=== PATIENT | female | born 1940 | race Caucasian/White ===

== ENCOUNTER 2016-08-05 17:48 | Inpatient (IN) | payer OTHER ==
[~2016-08-05] VITALS: Ht 157.5 cm; Wt 98.4 kg
[~2016-08-05 17:48] MED LIST: ASPIRIN EC81 M1 PO; BACTRIM DS TAB1 EACH PO; BUFFERIN LOW DO81 MG PO; CALCIUM 600600 M1 PO; DOCUSATE SODIU100 MG PO; FLAX SEED OIL1000 MG PO; GLUCOSAMINE500 M1 PO; GREEN TEA150 MG PO; KEFLEX500 M1 PO; LASIX40 MG PO; LEVOTHYROXINE PO; LEVOTHYROXINE0.05 MG PO; LEVOXYL75 MCG PO; MULTIVITAMIN1 TAB PO; OXACILLIN2 G1 IV; PERCOCET 325 MG1 TA2 PO; PRINIVIL 5MG5 MG PO; SIMVASTATIN20 MG PO; VAYAROL 232.5 M1 CAP PO; VITAMIN D PO; VITAMIN D400 I1 PO; ZOCOR10 M1 PO
[2016-08-05 18:37] LABS: ABSOLUTE BASOPHIL COUNT 0.1 /CUMM (0.0-0.2); ABSOLUTE EOSINOPHIL COUNT 0.4 /CUMM (0.0-0.7); ABSOLUTE GRANULOCYTE CT 9.5 /CUMM (1.4-6.5); ABSOLUTE LYMPH COUNT 1.3 /CUMM (1.2-3.4); ABSOLUTE MONOCYTE COUNT 1.6 /CUMM (0.10-0.60); BASOPHIL % 0.6 % (0.0-2.0); EOSINOPHIL % 3.2 % (0-5); GRANULOCYTE % 73.7 % (42.2-75.2); HEMATOCRIT 34.3 % (37-47); MEAN CORPUSCULAR HGB 28.3 PG (27.0-31.0); MEAN CORPUSCULAR HGB CONC 32.7 G/DL (33.0-37.0); MEAN CORPUSCULAR VOLUME 86.6 FL (81.0-99.0); MEAN PLATELET VOLUME 7.4 FL (7.4-10.4); PLATELET COUNT 606 /CUMM (130-400); RED BLOOD CELL CT 3.96 /CUMM (4.20-5.40); WHITE BLOOD CELL COUNT 12.9 /CUMM (4.8-10.8)
--- NOTE | 2016-08-05 18:52 | ED DYSPNEA/ASTHMA COMPLAINT ---
History of Present Illness General Chief Complaint: Dyspnea (COPD, CHF, Other) Stated Complaint: SENT OVER BY PCP SOB Source: patient Exam Limitations: no limitations Allergies Coded Allergies: lansoprazole (From Prevacid) (UNKNOWN 11/06/15) ranitidine (From Zantac) (UNKNOWN 11/06/15) sucralose (From Splenda (sucralose)) (UNKNOWN 11/06/15) Reconcile Medications Aspirin (Ecotrin*) 81 MG TABLET.DR 1 TAB PO DAILY CAD (Reported) Ciprofloxacin HCl (Cipro) 500 MG TABLET 1 TAB PO BID Skin infection (Reported ) Furosemide (Lasix) 40 MG TABLET 1 TAB PO DAILY FLUID RETENTION (Reported) Levothyroxine Sodium (Levoxyl) 75 MCG TABLET 1 TAB PO DAILY THYROID (Reported ) Metronidazole 500 MG TABLET 1 TAB PO BID Skin infection (Reported) Simvastatin (Zocor*) 10 MG TABLET 1 TAB PO QPM CHOLESTEROL (Reported) Triage Note: PT HERE WITH C/O SOB 02 SAT 92% ON RA IN TRIAGE. PT THINKS SHE MAY BE HAVING A REACTION FROM VANCOMYCIN. Triage Nurses Notes Reviewed? 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 Skinner, for increased shortness of breath. The patient reported that she was seen here in the emergency department on 06/26/2016 and was transferred to [place] for another sternal debridement. She reported that she thinks she was discharged from skilled nursing on 07/06/2016. She currently has a PICC line in and receive vancomycin. The patient reported that she does not know exactly when she started to feel shortness of breath, but reported that it has been worsening. She is also unable to tell me when the shortness of breath got worse. She reported that she feels short of breath with exertion. She reported , "I feel fine when I'm not moving." The patient reported that she was on Lasix , but was taken off of Lasix due to low potassium. She reported that she resumed the Lasix, but her ankles are still swollen. The patient is able to lay flat at night without any difficulty breathing. She denied any fevers, chills, visual changes, jaw pain, arm pain, numbness or tingling in her extremities, chest pain, abdominal pain, nausea, vomiting, or any other associated symptoms. (ELAYNE HAIR PA-C) Vital Signs & Intake/Output Vital Signs & Intake/Output Vital Signs Date Time Temp Pulse Resp B/P Pulse O2 O2 Flow FiO2 Ox Delivery Rate 08/06 1999 Nasal 2.0L Cannula 08/06 1629 97.8 84 20 100/66 96 Nasal 2.0L Cannula 08/06 1600 95 Nasal 2.0L Cannula 08/06 1323 98.5 77 18 136/60 95 Nasal 2.0L Cannula 08/06 1102 98.4 75 20 124/57 95 Nasal 2.0L Cannula 08/06 1101 98.4 75 20 124/57 95 Nasal 2.0L Cannula 08/06 0800 98 Nasal 2.0L Cannula 08/06 0712 98.9 79 19 118/81 94 08/06 0700 98.9 79 20 118/81 94 Nasal 2.0L Cannula 08/06 0658 94 Nasal 2.0L Cannula 08/06 0117 100.2 68 18 127/79 94 Nasal 2.0L Cannula ED Intake and Output 08/06 0000 08/05 1200 Intake Total 150 Output Total Balance 150 Intake, Oral 150 Patient 233 lb Weight Past History Travel History Traveled to [place] past 21 day No Medical History Any Pertinent Medical History? see below for history Cardiovascular: hypertension, hyperlipidemia, diabetes Endocrine: diabetes, hypothyroidism History of MRSA: No History of VRE: No History of CDIFF: No Surgical History Surgical History: CABG, sternal debridements x8 Psychosocial History Who do you live with Spouse Services at Home None What is your primary language Ethiopian Tobacco Use: Quit >30 days ago ETOH Use: denies use Illicit Drug Use: denies illicit drug use Family History Hx Contributory? No (ELAYNE HAIR PA-C) Review of Systems Review of Systems Constitutional: Reports: no symptoms. EENTM: Reports: no symptoms. Respiratory: Reports: see HPI. Cardiovascular: Reports: see HPI. GI: Reports: no symptoms. Genitourinary: Reports: no symptoms. Musculoskeletal: Reports: no symptoms. Skin: Reports: no symptoms. Neurological/Psychological: Reports: no symptoms. All Other Systems: Reviewed and Negative (ELAYNE HAIR PA-C) Physical Exam Physical Exam Respiratory: no respiratory distress, quiet respiration, No rhonchi or wheezes. Rales in bilateral lung bases. No stridor. Comments: Well-developed well-nourished person in no acute distress HEENT: Normal EENT exam, head normocephalic, moist mucous membranes Pupils equally round and reactive to light. Neck: Supple, no lymphadenopathy Back: Normal inspection Cardiovascular: Regular rate and rhythms no murmur , rubs, or gallops. No JVD. No carotid bruits Abdomen: Soft, nontender, nondistended Extremity: 1+ pedal and lower extremity edema bilaterally, no calf tenderness to palpation, normal and equal pulses. Neuro: Alert oriented x3, cranial nerves II through XII grossly intact. Skin: No appreciable rash on exposed skin, skin is warm and dry. Psych: Mood and affect is normal Core Measures ACS in differential dx? Yes Severe Sepsis Present: No Septic Shock Present: No (LAXMI ELLIOTT,ELAYNE) Progress Differential Diagnosis: asthma, AMI, bronchitis, costochondritis, CHF, COPD, musculoskeletal pain, pericarditis, pulmonary embolism, pneumonia, pneumothorax, unstable angina Diagnostic Imaging: Viewed by Me: Radiology Read, CT Scan. Discussed w/RAD: Radiology Read, CT Scan. Radiology Impression: PATIENT: AMELIA PERAZA PRESENT AGE: 76 PATIENT ACCOUNT NO: [id number] : 42 LOCATION: [facility] ORDERING PHYSICIAN: ELAYNE HAIR PA-C SERVICE DATE: 08/05/16 EXAM TYPE: RAD - XRY-PORTABLE CHEST XRAY EXAMINATION: XR PORTABLE CHEST CLINICAL INFORMATION: Shortness of breath. Evaluate for pneumonia. COMPARISON: Chest CT 06/27/2016 and chest x-ray 02/23/2014 TECHNIQUE: Portable view of the chest was obtained. FINDINGS: Diffuse patchy opacity primarily involving the middle and right lower lobes most suggestive of pneumonia. The left hemithorax is relatively well aerated with mild basilar atelectasis. The cardiac silhouette is difficult to evaluate given adjacent consolidation, however, it appears enlarged, a stable finding. A left-sided PICC line is seen terminating at the junction of the left brachiocephalic vein and superior vena cava. Surgical clips project over the mediastinum and axilla. IMPRESSION: Diffuse patchy opacity primarily involving the middle and right lower lobes most suggestive of pneumonia. DICTATED BY: MISSAEL ANTHONY MD DATE/TIME DICTATED:08/05/161842 SCRIPT WRITER:NISHI DATE/TIME TRANSCRIBED:08/05/161842 CONFIDENTIAL, DO NOT COPY WITHOUT APPROPRIATE AUTHORIZATION. <Electronically signed in Other Vendor System> SIGNED BY: MISSAEL ANTHONY MD 08/05/161849, PATIENT: AMELIA PERAZA PRESENT AGE: 76 PATIENT ACCOUNT NO: [id number] : 42 LOCATION: [facility] ORDERING PHYSICIAN: ELAYNE HAIR PA-C SERVICE DATE: 08/05/16 EXAM TYPE: CAT - CTA CHEST-PULMONARY EMBOLISM EXAMINATION: CT ANGIOGRAM OF THE CHEST WITH AND WITHOUT CONTRAST (CT PULMONARY ANGIOGRAM FOR PE) CLINICAL INFORMATION: Shortness of breath. COMPARISON: Portable chest 08/05/2016. CT of chest 06/27/2016. TECHNIQUE: Prior to contrast administration, noncontrast localization images were obtained. Subsequently, multidetector volumetric imaging was performed from the thoracic inlet to below the diaphragms following the administration of 95 mL Optiray 350 intravenous contrast. No contrast reaction reported. Sagittal, coronal, and MIP oblique sagittal reformatted images were obtained on the CT workstation, uploaded to PACS, and reviewed. Total exam dose-length product 584.92 mGy-cm. FINDINGS: QUALITY OF STUDY/ CONTRAST BOLUS: Satisfactory. PULMONARY ARTERIES: No central or segmental pulmonary emboli. THORACIC AORTA: Atherosclerotic vascular wall calcifications of the aorta. No aneurysm. There is vascular calcification of coronary arteries. LUNG: Scattered groundglass airspace disease throughout the right lung involving all lobes. Left lung is clear. PLEURA: Small layering right pleural effusion. MEDIASTINUM: No bulky lymphadenopathy. No evidence of septal bowing or right heart strain. CHEST WALL/AXILLA: There is a drain at the midline just superficial to the manubrium and sternum that extends into the anterior along a longitudinal course. There is no abscess or fluid collection. No bone destruction. No axillary mass or lymphadenopathy. OSSEOUS STRUCTURES: There is a small gap of the sternum at the junction of the body and manubrium centrally measuring 0.7 cm. The margins are corticated. No bone destruction. UPPER ABDOMEN : Atherosclerotic vascular wall calcifications of the aorta, celiac axis and splenic artery. Visualized portions of spleen, liver and adrenal glands are normal. IMPRESSION: 1. No evidence of pulmonary embolism. 2. Diffuse scattered groundglass opacities throughout the right lung may be infectious in etiology. Left lung is clear. VTE: negative DICTATED BY: KEDAR RUIZ MD DATE/TIME DICTATED:08/05/162017 SCRIPT WRITER:NISHI DATE/TIME TRANSCRIBED:2017 CONFIDENTIAL, DO NOT COPY WITHOUT APPROPRIATE AUTHORIZATION. < Electronically signed in Other Vendor System> SIGNED BY: KEDAR RUIZ MD 2041 Initial ED EKG: nonspecific ST T wave chg, multiple atrial premature complexes, flipped T waves and T wave flattening, changed from prior ekg, 85 bpm Comments: 08/05/2016 7:03:18 PM: I discussed this patient with Dr. Skinner. He reported that he saw an EKG from this patient earlier today which showed changes from her prior EKG. Requesting a CT angiogram of the chest to rule out PE. 08/05/2016 8:47:18 PM: This patient's Physician called emergency department. He remained. Dr. Skinner did not receive any information from [place] after she was admitted. They note that she did have an infectious disease consult. They did not now if she received any anticoagulation during her stay. They are worried for PE. No known history of CHF. This patient has had multiple sternal debridements and has been increasingly short of breath. He reported that she is typically very sedentary since the surgeries have been taken place. He has been working very closely with Dr. Skinner take care of this patient. 08/05/2016 9:33:24 PM: Discussed this patient with Dr. Skinner. He would like to take this patient onto his service. Requested that housestaff consult with pulmonology after they evaluate this patient. (LAXMI ELLIOTT,ELAYNE) Plan of Care: Orders Procedure Date/time Status ECHOCARDIOGRAM 08/07 899 Active Lab Add-on Test 08/07 599 Active VANCOMYCIN TROUGH 08/07 599 Active CBC WITHOUT DIFFERENTIAL 08/07 599 Active BASIC ELECTROLYTES PLUS BUN&CR 08/07 599 Active Heart Healthy Diet 08/06 B Active Nursing Misc 08/06 2038 Active Transfer Disposition 08/06 1914 Active TROPONIN LEVEL 08/06 1339 Complete EKG 08/06 1339 Active MAGNESIUM 08/06 09 Complete Change service to 08/06 0825 Active Change service to 08/06 0732 Active RAPID VIRAL INFLUENZA A 08/06 0700 Complete TROPONIN LEVEL 08/06 07 Complete WESTERGREN SED RATE 08/06 0700 Complete CBC WITHOUT DIFFERENTIAL 08/06 07 Complete BASIC ELECTROLYTES PLUS BUN&CR 08/06 07 Complete EKG 08/06 0700 Active Lab Add-on Test 08/06 0235 Active Teach/Educate 08/06 015 Active Nutritional Intake, Monitor 08/06 0152 Active Isolation 08/06 015 Complete Patient Care Conference 08/06 0152 Active Pathway - chart 08/06 0122 Active Pathway - chart 08/06 0121 Active House Staff 08/06 0121 Active Patient Data 08/06 0121 Active Code Status 08/06 0121 Active TROPONIN LEVEL 08/06 0100 Complete EKG 08/06 0100 Active CULTURE,URINE 08/06 0023 Active STREP PNEUMO URINARY ANTIGEN 08/06 0023 Active LEGIONELLA URINARY ANTIGEN 08/06 0023 Active LOWER RESPIRATORY CULTURE 08/06 0023 Active URINALYSIS 08/06 0023 Complete OXYGEN SETUP (GEN) 08/06 UNK Complete Weight 08/06 UNK Active VTE Mechanical Prophylaxis 08/06 UNK Active Telemetry/Broiler Chef Or Cook 08/06 UNK Complete Intake & Output 08/06 UNK Active PHOSPHORUS 08/05 1823 Complete Current Medications Sig/Louis Start time Last Medication Dose Stop Time Status Admin Furosemide 20 MG DAILY 08/07 1000 AC (Lasix) Melatonin 3 MG ONCE ONE 08/06 2044 CAN (Melatonin) 08/06 2045 Ibuprofen 600 MG Q6P PRN 08/06 013 AC (Motrin) Nystatin 1 DASH BID PRN 08/06 013 AC (Mycostatin) Oxycodone/ 2 TAB Q6P PRN 08/06 013 AC Acetaminophen (Percocet) Laboratory Tests 08/06/16 1650: Troponin I 0.02 08/06/16 0900: Anion Gap 13, Estimated GFR > 60, BUN/Creatinine Ratio 16.3, Magnesium 1.6, Troponin I 0.02 08/06/16 0700: CBC w Diff NO MAN DIFF REQ, RBC 3.62 L, MCV 86.8, MCH 28.5, RDW 17.3 H, MPV 7.5, Gran % 62.8, Lymphocytes % 13.3 L, Monocytes % 17.9 H, Eosinophils % 4.9, Basophils % 1.1, Absolute Granulocytes 5.9, Absolute Lymphocytes 1.3, Absolute Monocytes 1.7 H, Absolute Eosinophils 0.5, Absolute Basophils 0.1, PUBS MCHC 32.8 L, ESR Westergren 37 H 08/06/16199: Urinalysis LIGHT H, Urine Color YEL, Urine Clarity CLEAR, Urine pH 6.5, Ur Specific [place] 1.010, Urine Protein TRACE H, Urine Ketones NEG, Urine Nitrite NEG, Urine Bilirubin NEG, Urine Urobilinogen 0.2, Ur Leukocyte Esterase NEG, Ur Microscopic SEDIMENT EXAMINED, Urine WBC 1-3 H, Ur Epithelial Cells FEW, Urine Mucus RARE, Urine Hemoglobin NEG, Urine Glucose NEG 08/06/16 0135: Troponin I < 0.01 08/06/16 0135: Lactic Acid 1.4 Microbiology 08/06 07 BLOOD: Blood Culture - RECD 08/06 199 URINE ROUT: Legionella Antigen - RES 08/06 199 URINE ROUT: Streptococcus pneumoniae Antigen (M - RES 08/06 199 URINE ROUT: Urine Culture - RES 08/06 22 LOWER RESP: Respiratory Culture - COLB 08/06 22 LOWER RESP: Gram Stain - COLB Departure Departure Disposition: STILL A PATIENT Condition: Stable Clinical Impression Primary Impression: Pneumonia Qualifiers: Pneumonia type: due to unspecified organism Laterality: unspecified laterality Lung location: unspecified part of lung Qualified Code: J18.9 - Pneumonia, unspecified organism Secondary Impressions: Respiratory alkalosis Referrals: TOMMY ALARCON,CARLA Griggs (PCP/Family) Departure Forms: Customer Survey General Discharge Information Admission Note Spoke With: Jairo SKINNER MD Documentation of Exam: Documentation of any treatments & extenuating circumstances including Concerns Regarding Discharge (functional status, medication knowledge or non-compliance, living conditions, etc.) that warrant an admission rather than observation: [ This patient is a 76-year-old female with a past medical history including diabetes, hypertension, and CABG status post multiple sternal debridements for postoperative infection who presents to the emergency department today for evaluation of increasing shortness of breath. BNP elevated. EKG changes compared to prior. Pneumonia based on CT of the chest and chest x-ray. White blood cell count 12.9. This patient will need to be admitted to telemetry floor. Cardiology consultation, echocardiogram, follow-up blood cultures, IV antibiotics, gentle hydration, IV Lasix, trend labs, and close monitoring. Given this patient's significant medical history, premature discharge could prove medically harmful.] (LAXMI ELLIOTT,ELAYNE) PA/EQUAL OPPORTUNITY ASSISTANT Co-Sign Statement Statement: ED Attending supervision documentation- [X] I saw and evaluated the patient. I have also reviewed all the pertinent lab results and diagnostic results. I agree with the findings and the plan of care as documented in the PA's/EQUAL OPPORTUNITY ASSISTANT's documentation. [X] I have reviewed the ED Record and agree with the PA's/EQUAL OPPORTUNITY ASSISTANT's documentation. [] Additions or exceptions (if any) to the PAs/EQUAL OPPORTUNITY ASSISTANT's note and plan are summarized below: [] (AYDEN RILEY,PATTIE Grider) Critical Care Note Critical Care Note Critical Care Time: non-applicable (LAXMI ELLIOTT,ELAYNE)
--- NOTE | 2016-08-05 20:42 | CT SCAN REPORT ---
EXAMINATION: CT ANGIOGRAM OF THE CHEST WITH AND WITHOUT CONTRAST (CT PULMONARY ANGIOGRAM FOR PE) CLINICAL INFORMATION: Shortness of breath. COMPARISON: Portable chest 08/05/2016. CT of chest 06/27/2016. TECHNIQUE: Prior to contrast administration, noncontrast localization images were obtained. Subsequently, multidetector volumetric imaging was performed from the thoracic inlet to below the diaphragms following the administration of 95 mL Optiray 350 intravenous contrast. No contrast reaction reported. Sagittal, coronal, and MIP oblique sagittal reformatted images were obtained on the CT workstation, uploaded to PACS, and reviewed. Total exam dose-length product 584.92 mGy-cm. FINDINGS: QUALITY OF STUDY/CONTRAST BOLUS: Satisfactory. PULMONARY ARTERIES: No central or segmental pulmonary emboli. THORACIC AORTA: Atherosclerotic vascular wall calcifications of the aorta. No aneurysm. There is vascular calcification of coronary arteries. LUNG: Scattered groundglass airspace disease throughout the right lung involving all lobes. Left lung is clear. PLEURA: Small layering right pleural effusion. MEDIASTINUM: No bulky lymphadenopathy. No evidence of septal bowing or right heart strain. CHEST WALL/AXILLA: There is a drain at the midline just superficial to the manubrium and sternum that extends into the anterior along a longitudinal course. There is no abscess or fluid collection. No bone destruction. No axillary mass or lymphadenopathy. OSSEOUS STRUCTURES: There is a small gap of the sternum at the junction of the body and manubrium centrally measuring 0.7 cm. The margins are corticated. No bone destruction. UPPER ABDOMEN: Atherosclerotic vascular wall calcifications of the aorta, celiac axis and splenic artery. Visualized portions of spleen, liver and adrenal glands are normal. IMPRESSION: 1. No evidence of pulmonary embolism. 2. Diffuse scattered groundglass opacities throughout the right lung may be infectious in etiology. Left lung is clear. VTE: negative
--- NOTE | 2016-08-06 00:12 | History & Physical ---
DIANNEPILOBRYON 08/06/16 0011: General Information and HPI MD Statement: I have seen and personally examined AMELIA WILHELM and documented this H&P. The patient is a 76 year old F who presented with a patient stated chief complaint of [progressive shortness of breath]. Source of Information: patient, family, old records Exam Limitations: no limitations History of Present Illness: Mrs Wilhelm is a 76-year-old lady with a PMH of HTN, HLD, hypothyroidism, CAD s/p CABG (07/2010), complicated with multiple sternal infections/osteomyelitis requiring multiple debridements and POONAM drain most recently 06/12/[address] Downey and again on 06/27/16 at [facility]. From an infectious disease standpoint she is currently on IV vancomycin via LUE PICC line inserted 07/07/2016, metronidazole 500 mg PO BID, Cipro 500 mg PO BID for planned duration of therapy through 08/14/2015 and being followed by Dr. Gupta ( ID at [facility]). She reports 3-4 week duration of mild exertional dyspnea that has progressed over the past 1 week accompanied by lower extremity swelling. She followed up with her PCP and Dr. Skinner today and was referred to [facility] for further workup. Since starting on the IV antibiotics she reports decrease in appetite, occasional flashing in her arms that appears to be gradually improving. She denies any fevers, chills, new chest pain, palpitations, dizziness, nausea, abdominal pain, dysuria/urinary urgency/frequency or diarrhea. At discharge from [facility] she had 4 POONAM drains, 3 of which have been removed. A single drain remains in place at this time with approx 20-30cc serousaguinous daily drainage, no dehiscence of the wound with dry dressing changes QOD. Allergies/Medications Allergies: Coded Allergies: lansoprazole (From Prevacid) (UNKNOWN 11/06/15) ranitidine (From Zantac) (UNKNOWN 11/06/15) sucralose (From Splenda (sucralose)) (UNKNOWN 11/06/15) Home Med list Aspirin (Ecotrin*) 81 MG TABLET. 1 TAB PO DAILY CAD (Reported) Ciprofloxacin HCl (Cipro) 500 MG TABLET 1 TAB PO BID Skin infection (Reported ) Furosemide (Lasix) 40 MG TABLET 1 TAB PO DAILY FLUID RETENTION (Reported) Levothyroxine Sodium (Levoxyl) 75 MCG TABLET 1 TAB PO DAILY THYROID (Reported ) Metronidazole 500 MG TABLET 1 TAB PO BID Skin infection (Reported) Simvastatin (Zocor*) 10 MG TABLET 1 TAB PO QPM CHOLESTEROL (Reported) Past History Travel History Traveled to [place] past 21 day No Medical History Cardiovascular: hypertension, hyperlipidemia, diabetes Endocrine: diabetes, hypothyroidism History of MRSA: No History of VRE: No History of CDIFF: No Surgical History Surgical History: CABG, sternal debridements x8 Past Family/Social History Psychosocial History Services at Home: None ETOH Use: denies use Illicit Drug Use: denies illicit drug use Review of Systems Review of Systems Constitutional: Reports: see HPI. EENTM: Reports: no symptoms. Cardiovascular: Reports: see HPI. Respiratory: Reports: see HPI. GI: Reports: no symptoms. Genitourinary: Reports: no symptoms. Musculoskeletal: Reports: no symptoms. Skin: Reports: see HPI. Exam & Diagnostic Data Last 24 Hrs of Vital Signs/I&O Vital Signs Date Time Temp Pulse Resp B/P Pulse O2 O2 Flow FiO2 Ox Delivery Rate 08/06 0117 100.2 68 18 127/79 94 Nasal 2.0L Cannula 08/05 2305 111 18 123/63 92 08/05 2058 Room Air 08/05 2056 65 18 97/46 96 08/05 2045 89 18 145/73 91 08/05 1848 122/76 08/05 1814 148/88 08/05 1759 96.9 92 18 92 Room Air Intake & Output 08/06 0800 08/06 0000 08/05 1600 Intake Total 150 Output Total Balance 150 Intake, Oral 150 Patient 233 lb Weight Physical Exam General Appearance Alert, Oriented X3, No Acute Distress Skin The mediastinal wound is well healing with no evidence of dehiscence. There is a single POONAM drain in the lower mediastinal region with serousanguinous drainage. Intertrigo in the skin folds below the breasts with erythema HEENT PERRLA, EOMI, Mucous Membr. moist/pink Cardiovascular Regular Rate, Normal S1, Normal S2 Lungs Normal Air Movement, Dimnished breath sounds in the basilar regions and strifor in the R lung field Abdomen Normal Bowel Sounds, Soft, No Tenderness Neurological Normal Speech, Normal Tone Extremities Normal Pulses, 2+ pitting edema BL LE Last 24 Hrs of Labs/Ayaz: Laboratory Tests 08/06/16199: Urinalysis LIGHT H, Urine Color YEL, Urine Clarity CLEAR, Urine pH 6.5, Ur Specific [place] 1.010, Urine Protein TRACE H, Urine Ketones NEG, Urine Nitrite NEG, Urine Bilirubin NEG, Urine Urobilinogen 0.2, Ur Leukocyte Esterase NEG, Ur Microscopic SEDIMENT EXAMINED, Urine WBC 1-3 H, Ur Epithelial Cells FEW, Urine Mucus RARE, Urine Hemoglobin NEG, Urine Glucose NEG 08/06/16 0135: Troponin I < 0.01 08/06/16 013: Lactic Acid 1.4 08/05/162001: Lactic Acid 2.1 08/05/16 1850: pH 7.50 H, pCO2 29 L, pO2 73 L, HCO3 21, ABG O2 Sat (Measured) 92.0 L, P-50 (Temp Corrected) Y, Carboxyhemoglobin 0.8 L, O2 Concentration % RA, Temperature 100.3 H, O2 Delivery Method RA, Phlebotomy Draw Site RIGHT RADIAL 08/05/16 1823: Anion Gap 14, Estimated GFR > 60, BUN/Creatinine Ratio 16.7, Glucose 145 H, Calcium 8.6, Magnesium 1.4 L, Total Bilirubin 0.5, AST 23, ALT 22, Alkaline Phosphatase 92, Troponin I 0.02, Zsw-Z-Httquilmdsj Pept 8430 H, Total Protein 5.8 L, Albumin 3.1 L, Globulin 2.7, Albumin/Globulin Ratio 1.1, CBC w Diff NO MAN DIFF REQ, RBC 3.96 L, MCV 86.6, MCH 28.3, RDW 17.0 H, MPV 7.4, Gran % 73.7 , Lymphocytes % 10.3 L, Monocytes % 12.2 H, Eosinophils % 3.2, Basophils % 0.6 , Absolute Granulocytes 9.5 H, Absolute Lymphocytes 1.3, Absolute Monocytes 1.6 H, Absolute Eosinophils 0.4, Absolute Basophils 0.1, PUBS MCHC 32.7 L, Vancomycin Trough 23.0 H Microbiology 08/06 199 URINE ROUT: Legionella Antigen - RECD 08/06 199 URINE ROUT: Streptococcus pneumoniae Antigen (M - RECD 08/06 199 URINE ROUT: Urine Culture - RECD 08/06 22 LOWER RESP: Respiratory Culture - ORD 08/06 22 LOWER RESP: Gram Stain - ORD 08/05 2001 BLOOD: Blood Culture - RECD 08/05 1912 BLOOD: Blood Culture - COLB Diagnostic Data EKG Results Sinus rhythm, HR 85. Multiple HR premature complexes, repolarization abnormalities suggestive of ischemia. QTC 471 CXR Results Diffuse patchy opacity primarily involving the middle and right lower lobes most suggestive of pneumonia. Other Results Chest CTA: 1. No evidence of pulmonary embolism. 2. Diffuse scattered groundglass opacities throughout the right lung may be infectious in etiology. Left lung is clear. VTE: negative Assessment/Plan Assessment: 76-year-old lady with a PMH of HTN, HLD, hypothyroidism, CAD s/p CABG (07/2010), complicated with multiple sternal infections/osteomyelitis requiring multiple debridements and POONAM drain most recently 06/12/[address] Downey and again on 06/27/16 at [facility] who presents with reports of 3-4 week duration of progressive exertional dyspnea and lower extremity swelling. From an infectious disease standpoint she is currently on IV vancomycin via LUE PICC line inserted 07/07/2016, metronidazole 500 mg PO BID, Cipro 500 mg PO BID for planned duration of therapy through 08/14/2015 and being followed by Dr. Gupta (ID at [facility]). At discharge from [facility] she had 4 POONAM drains, 3 of which have been removed. A single drain remains in place at this time with approx 20-30cc serousaguinous daily drainage, no dehiscence of the wound with dry dressing changes QOD. VS on admission: BP 148/88, HR 92, RR 18, SPO2 92% on RA, T 96.9 Pertinent labs: WBC 12.9, H&H 11.2/34.3, platelet count 606K, potassium 3.3, BUN /CR 50/0.9 Magnesium: 1.4 ProBNP: 8430 AB.50/29/73/92 on RA Problem list: 1. Healthcare versus community-acquired pneumonia 2. Exertional dyspnea: rule out ACS 3. Recurrent mediastinal infections s/p debridement 4. Hypothyroidism 5. Hyperlipidemia 6. Thrombocytosis: Likely reactive secondary to infectious process 7. Hypokalemia 8. Hypomagnesemia Plan: * Admit to telemetry for continuous cardiac monitoring * In the setting of extensive cardiac history, prior diagnosis of prediabetes will obtain serial EKG/troponin to rule out ACS. 0100 hrs., 0700 hrs. echocardiogram in the a.m. Dr Skinner is notified of admission and will follow up in the morning * Patient is currently on vancomycin, metronidazole and ciprofloxacin new findings on CXR/chest CT. We'll continue her current antibiotic coverage, obtain pulmonology consult in the morning for possible antibiotic adjustments. Consider levofloxacin/moxifloxacin for better pulmonary coverage for Pseudomonas instead of Cipro. Follow up blood, urine cultures, rapid flu * Repleting potassium and magnesium and follow-up in the a.m. * Nystatin powder for intertrigo * Continue Synthroid 0.075 mg * Trazodone PRN for sleep * Heart healthy diet * Full code AM TEAM: * Confirm daily vancomycin dose from [facility]. * Pulm consult As Ranked By This Provider Problem List: 1. Pneumonia Qualifiers Pneumonia type: due to unspecified organism Laterality: unspecified laterality Lung location: unspecified part of lung Qualified Code: J18.9 - Pneumonia, unspecified organism 2. Bilateral lower extremity edema 3. Hypertension 4. Hypothyroidism 5. Obesity 6. prison (current) use of antibiotics Core Measures/Miscellaneous Acute Coronary Syndrome ACS Diagnosis: No Cerebrovascular Accident CVA/TIA Diagnosis: No Congestive Heart Failure CHF Diagnosis: No Venous Thromboembolism VTE Risk Factors: Acute medical illness, Age > 40 VTE Prophylaxis Ordered Inpt: Pharm- Heparin No Mech VTE prophylaxis d/t: No contraindications No VTE Pharm Prophylaxis d/t: No contraindications VTE Diagnosis: No VTE Type: NONE VTE Confirmed by (Test): NONE Severe Sepsis Severe Sepsis Present: No Septic Shock Septic Shock Present: No Miscellaneous Documentation Attending Case Discussed With: Jairo SKINNER MD Primary Care Physician: CARLA WARD Patient sees these Specialists DR Gupta (ID @ [facility]) Level of Patient Care: Telemetry Resident Review Statement Resident Statement: examined this patient, discussed with transportation logistics internship, agreed with transportation logistics internship, discussed with family, reviewed EMR data (avail), discussed with nursing , reviewed images TASIA SKINNER MD 08/06/16 0834: Attending Review Statement Attending Statement Attending Statement: examined this patient, discuss w/resident/PA/NURSE CONSULTANT, agreed w/resident/PA/NURSE CONSULTANT, discussed with family, reviewed EMR data (avail), discussed with nursing, discussed with case mgmt, reviewed images, amended to note Attending Assessment/Plan: The patient is a 76-year-old female well-known to me. The patient is now admitted to the hospital with a long history of multiple sternal wound infections, status post recent discharge from [facility]. She presented to the office today with worsening shortness of breath over the last several weeks. She denied any other systemic symptoms. The patient's chest x- ray shows evidence of a right-sided infiltrate suggestive of possible pneumonia. Her CTA shows no evidence of pulmonary bolus. It does, however, confirmed the presence of right-sided pulmonary disease. Recommendations: -Admit the patient to [address] [place] [address]. -Serial troponins -Pulmonary consult -Continue antibiotics for now -Echocardiogram to rule out change in left ventricular systolic function -Further plans after pulmonary input.
[2016-08-06] MEDS ORDERED: METRONIDAZOLE500 M1 PO (01:17)
[2016-08-06] MEDS ORDERED: CIPRO500 M1 PO (01:17)
[2016-08-06 07:00] VITALS: BP 118/81
[2016-08-06 07:42] LABS: ABSOLUTE BASOPHIL COUNT 0.1 /CUMM (0.0-0.2); ABSOLUTE EOSINOPHIL COUNT 0.5 /CUMM (0.0-0.7); ABSOLUTE GRANULOCYTE CT 5.9 /CUMM (1.4-6.5); ABSOLUTE LYMPH COUNT 1.3 /CUMM (1.2-3.4); ABSOLUTE MONOCYTE COUNT 1.7 /CUMM (0.10-0.60); BASOPHIL % 1.1 % (0.0-2.0); EOSINOPHIL % 4.9 % (0-5); GRANULOCYTE % 62.8 % (42.2-75.2); HEMATOCRIT 31.4 % (37-47); MEAN CORPUSCULAR HGB 28.5 PG (27.0-31.0); MEAN CORPUSCULAR HGB CONC 32.8 G/DL (33.0-37.0); MEAN CORPUSCULAR VOLUME 86.8 FL (81.0-99.0); MEAN PLATELET VOLUME 7.5 FL (7.4-10.4); PLATELET COUNT 541 /CUMM (130-400); RBC DISTRIBUTION WIDTH 17.3 % (11.5-14.5); RED BLOOD CELL CT 3.62 /CUMM (4.20-5.40); WHITE BLOOD CELL COUNT 9.4 /CUMM (4.8-10.8)
--- NOTE | 2016-08-06 07:47 | PN- Housestaff ---
Subjective Follow-up For: -worsening shortness of breath Complaints: no complaints Subjective: I have seen and examined the patient today morning, she was sitting on the bed, comfortable, on 2 L of nasal cannula, saturating about 92%, she did not have any new complaint. POONAM drain was in place, PICC line in the left arm, picc line site clear, no erythema. She has bilateral lower extremity edema Review of Systems Constitutional: Reports: see HPI. EENTM: Denies: blurred vision, double vision, visual changes, eye pain. Cardiovascular: Reports: orthopena, peripheral edema. Denies: chest pain, edema, palpitations. Respiratory: Reports: short of breath. Denies: cough, hemoptysis, orthopnea, sputum production, stridor, wheezing. Gastrointestinal: Denies: abdominal pain, bloating, constipation, diarrhea. Genitourinary: Reports: no symptoms. Musculoskeletal: Reports: no symptoms. Skin: Denies: cysts, change in skin color, change in hair/nails, dryness, erythema. Neurological/Psychological: Denies: anxiety, ataxia, cognitive dysfunction, confusion. Hematologic/Endocrine: Reports: no symptoms. Objective Last 24 Hrs of Vital Signs/I&O Vital Signs Date Time Temp Pulse Resp B/P Pulse O2 O2 Flow FiO2 Ox Delivery Rate 08/06 0712 98.9 79 19 118/81 94 08/06 0658 94 Nasal 2.0L Cannula 08/06 0117 100.2 68 18 127/79 94 Nasal 2.0L Cannula 08/05 2305 111 18 123/63 92 08/05 2058 Room Air 08/05 2056 65 18 97/46 96 08/05 2044 89 18 145/73 91 08/05 1848 122/76 08/05 1814 148/88 08/05 1759 96.9 92 18 92 Room Air Intake & Output 08/06 0800 08/06 0000 08/05 1600 Intake Total 150 Output Total Balance 150 Intake, Oral 150 Patient 105.687 kg 105.687 kg Weight Physical Exam General Appearance: Alert, Oriented X3, Cooperative, No Acute Distress Skin: No Rashes, No Breakdown, b/l lower extremtiy edema HEENT: Atraumatic, PERRLA, EOMI Neck: Supple, No JVD Lymphatic: no lad Cardiovascular: Normal S1, Normal S2, No Murmurs Lungs: decreased bs on right side Abdomen: sternal wound POONAM drain - 1 present, Neurological: Strength at 5/5 X4 Ext, Normal Tone, Sensation Intact Extremities: b/l lower extremtiy edema 2 to 3+, left upper extremity PICC line present. Vascular: Normal Pulses Current Medications: Current Medications Sig/Louis Start time Last Medication Dose Route Stop Time Status Admin Aspirin Buffered 81 MG DAILY 08/06 1000 AC PO Atorvastatin Calcium 5 MG 1700 08/06 1700 AC PO Ciprofloxacin 0 .STK-MED ONE 08/06 132 DC PO Ciprofloxacin 500 MG BID 08/06 0118 AC 08/06 PO 08/10 011 0135 Enoxaparin Sodium 40 MG DAILY 08/06 1000 AC SC Furosemide 40 MG DAILY 08/06 1000 AC PO Ibuprofen 600 MG Q6P PRN 08/06 0130 AC PO Levothyroxine Sodium 0.075 MG DAILY AC 08/06 0700 AC 08/06 PO 0710 Magnesium Oxide 400 MG ONCE ONE 08/06 024 DC 08/06 PO 08/06 024 0442 Metronidazole 0 .STK-MED ONE 08/06 132 DC PO Metronidazole 500 MG BID 08/06 011 AC 08/06 PO 0135 Nystatin 1 DASH BID PRN 08/06 0130 AC TOP Oxycodone/ 0 .STK-MED ONE 08/06 132 DC Acetaminophen PO Oxycodone/ 1 TAB Q6P PRN 08/06 0130 AC 08/06 Acetaminophen PO 0135 Oxycodone/ 2 TAB Q6P PRN 08/06 0130 AC Acetaminophen PO Potassium Chloride 0 .STK-MED ONE 08/06 0422 DC PO Potassium Chloride 40 MEQ ONCE ONE 08/06 0245 DC 08/06 PO 08/06 0246 0442 Ramelteon 8 MG ONCE ONE 08/06 0430 DC 08/06 PO 08/06 043 0442 Trazodone HCl 0 .STK-MED ONE 08/06 011 DC PO Trazodone HCl 25 MG ONCE ONE 08/06 010 DC 08/06 PO 08/06 010 0127 Last 24 Hrs of Lab/Ayaz Results Last 24 Hrs of Labs/Mics: Laboratory Tests 08/06/16 0700: CBC w Diff Pending, WBC Pending, RBC Pending, Hgb Pending, Hct Pending, MCV Pending, MCH Pending, RDW Pending, Plt Count Pending, MPV Pending, PUBS MCHC Pending, ESR Westergren Pending 08/06/16 020: Urinalysis LIGHT H, Urine Color YEL, Urine Clarity CLEAR, Urine pH 6.5, Ur Specific [place] 1.010, Urine Protein TRACE H, Urine Ketones NEG, Urine Nitrite NEG, Urine Bilirubin NEG, Urine Urobilinogen 0.2, Ur Leukocyte Esterase NEG, Ur Microscopic SEDIMENT EXAMINED, Urine WBC 1-3 H, Ur Epithelial Cells FEW, Urine Mucus RARE, Urine Hemoglobin NEG, Urine Glucose NEG 08/06/16 0135: Troponin I < 0.01 08/06/16134: Lactic Acid 1.4 08/05/162001: Lactic Acid 2.1 08/05/160: pH 7.50 H, pCO2 29 L, pO2 73 L, HCO3 21, ABG O2 Sat (Measured) 92.0 L, P-50 (Temp Corrected) Y, Carboxyhemoglobin 0.8 L, O2 Concentration % RA, Temperature 100.3 H, O2 Delivery Method RA, Phlebotomy Draw Site RIGHT RADIAL 08/05/16 1823: Anion Gap 14, Estimated GFR > 60, BUN/Creatinine Ratio 16.7, Glucose 145 H, Calcium 8.6, Phosphorus 3.0, Magnesium 1.4 L, Total Bilirubin 0.5, AST 23, ALT 22, Alkaline Phosphatase 92, Troponin I 0.02, Pyt-I-Iyamxjqjhfh Pept 8430 H, Total Protein 5.8 L, Albumin 3.1 L, Globulin 2.7, Albumin/Globulin Ratio 1.1, CBC w Diff NO MAN DIFF REQ, RBC 3.96 L, MCV 86.6, MCH 28.3, RDW 17.0 H, MPV 7.4, Gran % 73.7, Lymphocytes % 10.3 L, Monocytes % 12.2 H, Eosinophils % 3.2, Basophils % 0.6, Absolute Granulocytes 9.5 H, Absolute Lymphocytes 1.3, Absolute Monocytes 1.6 H, Absolute Eosinophils 0.4, Absolute Basophils 0.1, PUBS MCHC 32.7 L, Vancomycin Trough 23.0 H Microbiology 08/06 0700 BLOOD: Blood Culture - RECD 08/06 199 URINE ROUT: Legionella Antigen - RES 08/06 199 URINE ROUT: Streptococcus pneumoniae Antigen (M - RES 01/12 0200 URINE ROUT: Urine Culture - RES 08/06 0023 LOWER RESP: Respiratory Culture - COLB 08/06 22 LOWER RESP: Gram Stain - COLB 08/05 2001 BLOOD: Blood Culture - WKST Lines/Diet/Fluids Restraints: none Assessment/Plan Assessment: This is a 76-year-old female with past medical history of coronary artery disease status post CABG ( 2010) ,hypertension, type 2 diabetes mellitus, hypercholesterolemia, hypothyroidism,obesity, CABG complicated with sternal wound chronic osteomyelitis (initial cultures growing Serratia in 2010) , and the wound complicated multiple times, the first time treated with 6 weeks of ciprofloxacin, repeat debridement, the second time treated with oxacillin, however continued to have recurrent infection with multiple debridements after that,most recently underwent a debridement of the sternal wound and sternum with bilateral pectoralis muscle advancement flaps by Dr. Salcedo on 06/12/2016, with [address], out of which 3 were removed and one still in place, with most recent ER visit on 06/27/2016 when [place] was transferred [place] from [place], for sternotomy with washout, was placed on 6 weeks of ciprofloxacin, Flagyl and vancomycin through the PICC line (last dose 08/14/2016) comes in today with chief complaint of worsening shortness of breath as last 3-4 weeks prior to admission, which has progressively worsened since last 1 week accompanied with worsening of bilateral lower extremity swelling. She denied any fever, chills, chest pain, palpitations, dizziness, nausea, abdominal pain, dysuria, urinary urgency. On presentation at the emergency department her vitals were stable, afebrile, saturations 92% on room air, she had a white count of 12.9, no bands, H/H of 11.2/34.3, platelet of 606, potassium of 3.3, BUN and creatinine within normal limit, magnesium of 1.4, proBNP elevated at 8430, ABG 7.50/29/73/92 X-ray revealed diffuse patchy opacity primarily involving the middle and the right lower lobes most suggestive of pneumonia. CTA chest negative for pulmonary emboli She was admitted to general medicine floor for the treatment of following problems : #1 worsening shortness of breath most likely secondary to community-acquired pneumonia versus healthcare acquired pneumonia versus atypical congestive heart failure. * Patient has proBNP elevated. * X-ray shows evidence of right middle and lower lobe consolidation. * Pulmonology consult appreciated. * Echo awaited for right-sided heart pressure. * However most likely the shortness of breath is secondary to pneumonia versus fluid overload in the setting of elevated proBNP. * Continue to monitor intake and output. * Continue to monitor daily weights. * Continue to monitor electrolytes and replete as necessary. * Continue IV Lasix 20 mg daily. * We will continue serial EKG and troponins, to rule out ACS, secondary to new EKG abnormalities. #2 sternal wound infection status post multiple debridement with chronic osteomyeltis on ciprofloxacin and Flagyl and vancomycin. * Continue current antibiotic ciprofloxacin, Flagyl, vancomycin until August 14 * await infectious disease recommendations on any adjustment of antibiotic. * wound site and picc looks clean, ct to monitor for infection daily. * continue to follow cultures #3 new EKG changes with increase atrial ectopy. * We will continue to trend troponin and EKG. * First two set less than 0.01 and less than 0.02, next set scheduled at 1;30 PM * ct telemetry monitoring. #4 hypomagnesemia/hypokalemia. * We'll continue to monitor daily and repeat as necessary. #5 hypothyroidism. * Continue Synthyroid 0.075 mg daily #6 hyperlipidemia * Ct Lipitor 5 mg daily. #7 history of coronary artery disease status post CABG. * Continue aspirin 81 mg daily. Trazodone when necessary for sleep. Patient is full code. DVT prophylaxis with Lovenox. Mild/moderate and severe pain pathway ordered. Problem List: 1. Hypertension 2. Hypothyroidism 3. Obesity 4. Dyslipidemia 5. Osteomyelitis 6. Pneumonia 7. Wound infection after surgery 8. Bilateral lower extremity edema Pain Ratin Pain Location: na Pain Goal: Remain pain free Pain Plan: mild, moderate, severe Tomorrow's Labs & Rationales: bep, cbc, mg DVT/Prophylaxis: pharmacological Discharge Plan Stable for Discharge? No Anticipated Discharge (Day): two days
--- NOTE | 2016-08-06 07:59 | Event Note ---
Event Note Event Note: Situation: * Vancomycin dose Brief: * Patient is currently being followed by Dr. Gupta (ID @ [facility]) * Current antibiotic regimen: Vancomycin 750 mg in 250ml IV Q12, ciprofloxacin 500 mg PO BID, metronidazole 500 mg PO BID * PICC line inserted 07/07/2016 with planned duration of therapy through 2016 * Vancomycin level drawn yesterday on arrival @ 0623 hrs = 23 * Patient does receive her vancomycin at 0900 hrs, 2100 hrs thus dose was random level rather than a trough as reported A/P: * We will continue her on her current antibiotic regimen as requested
--- NOTE | 2016-08-06 08:36 | PN- Cardiology ---
Subjective Subjective: Clinically, the patient appears stable. She has mild cough. No fevers noted. Preliminary results noted. Pulmonary and infectious disease input pending. Objective Vital Signs and I&Os Vital Signs Date Time Temp Pulse Resp B/P Pulse O2 O2 Flow FiO2 Ox Delivery Rate 08/06 0712 98.9 79 19 118/81 94 08/06 0700 98.9 79 20 118/81 94 Nasal 2.0L Cannula 08/06 0658 94 Nasal 2.0L Cannula 08/06 011 100.2 68 18 127/79 94 Nasal 2.0L Cannula 08/05 2305 111 18 123/63 92 08/05 2058 Room Air 08/05 2056 65 18 97/46 96 08/05 2044 89 18 145/73 91 08/05 1848 122/76 08/05 1814 148/88 08/05 1759 96.9 92 18 92 Room Air Intake & Output 08/06 1600 08/06 0800 08/06 0000 08/05 1600 08/05 0800 08/05 0000 Intake Total 150 Output Total Balance 150 Intake, Oral 150 Patient 233 lb 233 lb Weight Physical Exam: eneral Appearance Alert, Oriented X3, No Acute Distress Skin The mediastinal wound is well healing with no evidence of dehiscence. There is a single POONAM drain in the lower mediastinal region with serousanguinous drainage. Intertrigo in the skin folds below the breasts with erythema HEENT PERRLA, EOMI, Mucous Membr. moist/pink Cardiovascular Regular Rate, Normal S1, Normal S2, 1 to 2/6 systolic murmur left sternal border. Lungs scattered rhonchi, slightly greater on the right side. Reasonable air entry bilaterally Abdomen Normal Bowel Sounds, Soft, No Tenderness Neurological nonfocal Extremities Normal Pulses, 2+ pitting edema BL LE Current Medications: Current Medications Sig/Louis Start time Last Medication Dose Route Stop Time Status Admin Aspirin Buffered 81 MG DAILY 08/06 1000 AC PO Atorvastatin Calcium 5 MG 1700 08/06 1700 AC PO Ciprofloxacin 0 .STK-MED ONE 08/06 132 DC PO Ciprofloxacin 500 MG BID 08/06 0118 AC 08/06 PO 08/10 Enoxaparin Sodium 40 MG DAILY 08/06 1000 AC SC Furosemide 40 MG DAILY 08/06 1000 AC PO Ibuprofen 600 MG Q6P PRN 08/06 129 AC PO Levothyroxine Sodium 0.075 MG DAILY AC 08/06 0700 AC 08/06 PO 0710 Magnesium Oxide 400 MG ONCE ONE 08/06 244 DC 08/06 PO 08/06 024 0442 Metronidazole 0 .STK-MED ONE 08/06 132 DC PO Metronidazole 500 MG BID 08/06 0118 AC 08/06 PO 0135 Nystatin 1 DASH BID PRN 08/06 0130 AC TOP Oxycodone/ 0 .STK-MED ONE 08/06 132 DC Acetaminophen PO Oxycodone/ 1 TAB Q6P PRN 08/06 013 AC 08/06 Acetaminophen PO 0135 Oxycodone/ 2 TAB Q6P PRN 08/06 129 AC Acetaminophen PO Potassium Chloride 0 .STK-MED ONE 08/06 0422 DC PO Potassium Chloride 40 MEQ ONCE ONE 08/06 244 DC 08/06 PO 08/06 245 044 Ramelteon 8 MG ONCE ONE 08/06 0430 DC 08/06 PO 08/06 043 0442 Trazodone HCl 0 .STK-MED ONE 08/06 110 DC PO Trazodone HCl 25 MG ONCE ONE 08/06 99 DC 08/06 PO 08/06 100 0127 Vancomycin HCl 750 MG Q12 08/06 1000 AC Dextrose/Water 250 ML IV Results Last 48 Hrs of Labs/Mics: Laboratory Tests 08/06/16 0700: CBC w Diff NO MAN DIFF REQ, RBC 3.62 L, MCV 86.8, MCH 28.5, RDW 17.3 H, MPV 7.5, Gran % 62.8, Lymphocytes % 13.3 L, Monocytes % 17.9 H, Eosinophils % 4.9, Basophils % 1.1, Absolute Granulocytes 5.9, Absolute Lymphocytes 1.3, Absolute Monocytes 1.7 H, Absolute Eosinophils 0.5, Absolute Basophils 0.1, PUBS MCHC 32.8 L, ESR Westergren Pending 08/06/16 0200: Urinalysis LIGHT H, Urine Color YEL, Urine Clarity CLEAR, Urine pH 6.5, Ur Specific [place] 1.010, Urine Protein TRACE H, Urine Ketones NEG, Urine Nitrite NEG, Urine Bilirubin NEG, Urine Urobilinogen 0.2, Ur Leukocyte Esterase NEG, Ur Microscopic SEDIMENT EXAMINED, Urine WBC 1-3 H, Ur Epithelial Cells FEW, Urine Mucus RARE, Urine Hemoglobin NEG, Urine Glucose NEG 08/06/16 0135: Troponin I < 0.01 08/06/16134: Lactic Acid 1.4 08/05/162001: Lactic Acid 2.1 08/05/16 1850: pH 7.50 H, pCO2 29 L, pO2 73 L, HCO3 21, ABG O2 Sat (Measured) 92.0 L, P-50 (Temp Corrected) Y, Carboxyhemoglobin 0.8 L, O2 Concentration % RA, Temperature 100.3 H, O2 Delivery Method RA, Phlebotomy Draw Site RIGHT RADIAL 08/05/16 1823: Anion Gap 14, Estimated GFR > 60, BUN/Creatinine Ratio 16.7, Glucose 145 H, Calcium 8.6, Phosphorus 3.0, Magnesium 1.4 L, Total Bilirubin 0.5, AST 23, ALT 22, Alkaline Phosphatase 92, Troponin I 0.02, Nga-Q-Seogsymwdiy Pept 8430 H, Total Protein 5.8 L, Albumin 3.1 L, Globulin 2.7, Albumin/Globulin Ratio 1.1, CBC w Diff NO MAN DIFF REQ, RBC 3.96 L, MCV 86.6, MCH 28.3, RDW 17.0 H, MPV 7.4, Gran % 73.7, Lymphocytes % 10.3 L, Monocytes % 12.2 H, Eosinophils % 3.2, Basophils % 0.6, Absolute Granulocytes 9.5 H, Absolute Lymphocytes 1.3, Absolute Monocytes 1.6 H, Absolute Eosinophils 0.4, Absolute Basophils 0.1, PUBS MCHC 32.7 L, Vancomycin Trough 23.0 H Assessment/Plan Assessment/Plan Assessment: 1. Worsening shortness of breath; possible right-sided pneumonia versus atypical congestive heart failure 2. Elevated proBNP; rule out new atypical congestive heart failure 3. History of coronary artery disease, status post bypass surgery 4. Sternal wound infection; status post multiple interventions/debridements 5. New ECG abnormalities 6. Increased atrial ectopy 7. Hypokalemia and hypomagnesemia 8. Hypothyroidism 9. Hyperlipidemia 10. Thrombocytosis Recommendations: -Continue current antibiotic regimen pending input from pulmonary and infectious disease -Echocardiogram to reassess left ventricular function -(Gentle diuresis with IV Lasix 20 mg daily. Close monitoring of intakes, outputs, daily weights, and daily labs. -Replete potassium and magnesium. Recheck in 24 hours -Serial troponins -Further plans after the above Continue telemetry? Yes
[2016-08-06 11:02] VITALS: BP 124/57
--- NOTE | 2016-08-06 12:53 | Cons- Pulmonary ---
General Information and HPI Consulting Request Date of Consult: 08/06/16 Requested By: Dr. Mehta Reason for Consult: Abnormal CAT scan, shortness of breath Source of Information: patient Exam Limitations: no limitations History of Present Illness: Patient is a 76-year-old woman. Consultation requested for an abnormal CAT scan and and shortness of breath. The patient has a significant past medical history of coronary artery bypass grafting in 2010. She is also had complications with sternal infections including osteomyelitis and multiple debridements currently with a POONAM drain. She is on vancomycin and ciprofloxacin and Flagyl. [facility]. She presented with a subacute presentation of shortness of breath over course of the week or so. She has had a hospitalization at [place] back in June for her sternal wounds. She has a PICC line that was inserted in June and she has been followed by Dr. Gupta from infectious disease. She also experienced significant leg edema up to her knee 2- 3+. During her presentation a pulmonary embolism was considered and a CTA was performed. CT shows no evidence of pulmonary embolism. However there is diffuse scattered groundglass opacifications throughout the right lung. Left lung is clear. The patient has a BNP of 8430. No nausea no vomiting no diarrhea no constipation. There is some dry cough. The shortness of breath is primarily exertional and the patient reports some improvement with Lasix overnight. Of note she did receive her antibiotics yesterday and did not following dose was received this morning through her PICC line. There is no travel history or sick contacts otherwise. Allergies/Medications Allergies: Coded Allergies: lansoprazole (From Prevacid) (UNKNOWN 11/06/15) ranitidine (From Zantac) (UNKNOWN 11/06/15) sucralose (From Splenda (sucralose)) (UNKNOWN 11/06/15) Home Med List: Aspirin (Ecotrin*) 81 MG TABLET.DR 1 TAB PO DAILY CAD (Reported) Ciprofloxacin HCl (Cipro) 500 MG TABLET 1 TAB PO BID Skin infection (Reported ) Furosemide (Lasix) 40 MG TABLET 1 TAB PO DAILY FLUID RETENTION (Reported) Levothyroxine Sodium (Levoxyl) 75 MCG TABLET 1 TAB PO DAILY THYROID (Reported ) Metronidazole 500 MG TABLET 1 TAB PO BID Skin infection (Reported) Simvastatin (Zocor*) 10 MG TABLET 1 TAB PO QPM CHOLESTEROL (Reported) Current Medications: Current Medications Sig/Louis Start time Last Medication Dose Route Stop Time Status Admin Aspirin Buffered 81 MG DAILY 08/06 1000 AC 08/06 PO 0945 Atorvastatin Calcium 5 MG 1700 08/06 1700 AC PO Ciprofloxacin 0 .STK-MED ONE 08/06 013 DC PO Ciprofloxacin 500 MG BID 08/06 0118 AC 08/06 PO 08/10 0117 0945 Enoxaparin Sodium 40 MG DAILY 08/06 1000 AC 08/06 SC 0945 Furosemide 40 MG DAILY 08/06 1000 AC 08/06 PO 0945 Ibuprofen 600 MG Q6P PRN 08/06 0130 AC PO Levothyroxine Sodium 0.075 MG DAILY AC 08/06 0700 AC 08/06 PO 0710 Magnesium Oxide 400 MG ONCE ONE 08/06 0245 DC 08/06 PO 08/06 0246 0442 Metronidazole 0 .STK-MED ONE 08/06 013 DC PO Metronidazole 500 MG BID 08/06 0118 AC 08/06 PO 0945 Nystatin 1 DASH BID PRN 08/06 0130 AC TOP Oxycodone/ 0 .STK-MED ONE 08/06 0133 DC Acetaminophen PO Oxycodone/ 1 TAB Q6P PRN 08/06 0130 AC 08/06 Acetaminophen PO 0135 Oxycodone/ 2 TAB Q6P PRN 08/06 0130 AC Acetaminophen PO Potassium Chloride 0 .STK-MED ONE 08/06 0422 DC PO Potassium Chloride 40 MEQ ONCE ONE 08/06 0245 DC 08/06 PO 08/06 0246 0442 Ramelteon 8 MG ONCE ONE 08/06 0430 DC 08/06 PO 08/06 0431 0442 Trazodone HCl 0 .STK-MED ONE 08/06 0111 DC PO Trazodone HCl 25 MG ONCE ONE 08/06 0100 DC 08/06 PO 08/06 0101 0127 Vancomycin HCl 750 MG Q12 08/06 1000 AC 08/06 Dextrose/Water 250 ML IV 0945 Review of Systems Comments 18 point Review of Systems performed. Positive and negative pertinent findings are deliniated in the HPI. Otherwise the ROS is negative. 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 Home Services at Home: None Smoking Status: Unknown If Ever Smoked ETOH Use: denies use Illicit Drug Use: denies illicit drug use Exam & Diagnostic Data Last 24 Hrs of Vital Signs/I&O Vital Signs Date Time Temp Pulse Resp B/P Pulse O2 O2 Flow FiO2 Ox Delivery Rate 08/06 1102 98.4 75 20 124/57 95 Nasal 2.0L Cannula 08/06 1101 98.4 75 20 124/57 95 Nasal 2.0L Cannula 08/06 0800 98 Nasal 2.0L Cannula 08/06 0712 98.9 79 19 118/81 94 08/06 0700 98.9 79 20 118/81 94 Nasal 2.0L Cannula 08/06 0658 94 Nasal 2.0L Cannula 08/06 0117 100.2 68 18 127/79 94 Nasal 2.0L Cannula 08/05 2305 111 18 123/63 92 08/05 205 Room Air 08/05 2056 65 18 97/46 96 08/05 204 89 18 145/73 91 08/05 1848 122/76 08/05 1814 148/88 08/05 1759 96.9 92 18 92 Room Air Intake & Output 08/06 1600 08/06 0800 08/06 0000 Intake Total 150 Output Total 50 Balance -50 150 Intake, Oral 150 Output, 50 Drainage Patient 233 lb 233 lb Weight Physical Exam Other Physical Findings: General - Alert, awake and oriented HEENT - normocephalic, atraumatic Cardiovascular - S1, S2, systolic murmur Lungs - slightly diminished breath sounds bilaterally however on the right crackles are more prominent Abdomen - obese, soft, bowel sounds positive, no tenderness Extremities - significant bilateral 2-3+ edema up to the knee Substernal drain in place Last 48 Hrs of Labs/Ayaz: Laboratory Tests 08/06/16 0900: Anion Gap 13, Estimated GFR > 60, BUN/Creatinine Ratio 16.3, Troponin I 0.02 08/06/16 0700: CBC w Diff NO MAN DIFF REQ, RBC 3.62 L, MCV 86.8, MCH 28.5, RDW 17.3 H, MPV 7.5, Gran % 62.8, Lymphocytes % 13.3 L, Monocytes % 17.9 H, Eosinophils % 4.9, Basophils % 1.1, Absolute Granulocytes 5.9, Absolute Lymphocytes 1.3, Absolute Monocytes 1.7 H, Absolute Eosinophils 0.5, Absolute Basophils 0.1, PUBS MCHC 32.8 L, ESR Westergren 37 H 08/06/16 0200: Urinalysis LIGHT H, Urine Color YEL, Urine Clarity CLEAR, Urine pH 6.5, Ur Specific [place] 1.010, Urine Protein TRACE H, Urine Ketones NEG, Urine Nitrite NEG, Urine Bilirubin NEG, Urine Urobilinogen 0.2, Ur Leukocyte Esterase NEG, Ur Microscopic SEDIMENT EXAMINED, Urine WBC 1-3 H, Ur Epithelial Cells FEW, Urine Mucus RARE, Urine Hemoglobin NEG, Urine Glucose NEG 08/06/16 0135: Troponin I < 0.01 08/06/16 013: Lactic Acid 1.4 08/05/162001: Lactic Acid 2.1 08/05/16 1850: pH 7.50 H, pCO2 29 L, pO2 73 L, HCO3 21, ABG O2 Sat (Measured) 92.0 L, P-50 (Temp Corrected) Y, Carboxyhemoglobin 0.8 L, O2 Concentration % RA, Temperature 100.3 H, O2 Delivery Method RA, Phlebotomy Draw Site RIGHT RADIAL 08/05/16 1823: Anion Gap 14, Estimated GFR > 60, BUN/Creatinine Ratio 16.7, Glucose 145 H, Calcium 8.6, Phosphorus 3.0, Magnesium 1.4 L, Total Bilirubin 0.5, AST 23, ALT 22, Alkaline Phosphatase 92, Troponin I 0.02, Goj-X-Rpolwjaqlht Pept 8430 H, Total Protein 5.8 L, Albumin 3.1 L, Globulin 2.7, Albumin/Globulin Ratio 1.1, CBC w Diff NO MAN DIFF REQ, RBC 3.96 L, MCV 86.6, MCH 28.3, RDW 17.0 H, MPV 7.4, Gran % 73.7, Lymphocytes % 10.3 L, Monocytes % 12.2 H, Eosinophils % 3.2, Basophils % 0.6, Absolute Granulocytes 9.5 H, Absolute Lymphocytes 1.3, Absolute Monocytes 1.6 H, Absolute Eosinophils 0.4, Absolute Basophils 0.1, PUBS MCHC 32.7 L, Vancomycin Trough 23.0 H Assessment/Plan Impression/Plan: Impression 76-year-old woman with a history of CABG in 2010, complicated by by sternal wounds and osteomyelitis requiring multiple antibiotic courses, admissions, PICC line placement recently and on vancomycin and ciprofloxacin and Flagyl for therapy. She is admitted with shortness of breath is subacute in nature over the past week getting worse. Significant edema is present in the setting of an elevated proBNP 8430. Her CAT scan findings are not clearly risk control field representative of congestive heart failure given the unilateral issue however an atypical presentations possible. She is without a fever nor leukocytosis at this time. Plan -Primary team is calling infectious disease consultation would be useful to see if any adjustment to medications are necessary -An echocardiogram is planned for today to evaluate heart function and possible pulmonary pressures -CAT scan of the chest would be appropriate for resolution after hospitalization unless clinically warranted to repeat earlier -Continue diuresis and monitoring ins and outs -Replete electrolytes -DVT prophylaxis at all times Consult Acknowledgment - Thank you for your consult request.
--- NOTE | 2016-08-06 13:37 | Patient Discharge Instructions ---
Discharge Instructions General Discharge Information Special Instructions: Follow up CAT scan of the chest in 6 to 8 weeks after discharge to endure resolution of pnuemonia. We have provided you with scripts. Please follow up with your PCP within one week of discharge. Acute Coronary Syndrome Inclusion Criteria At DC or during hospital stay patient has or had the following: ACS DIAGNOSIS No Discharge Core Measures Meds if any: Prescribed or Continued at Discharge Meds if any: NOT Prescribed or Continued at Discharge Congestive Heart Failure Inclusion Criteria At DC or during hospital stay patient has or had the following: CHF DIAGNOSIS Yes Discharge Core Measures Meds if any: Prescribed or Continued at Discharge BENEDICT/ARB for EF <40% Yes Meds if any: NOT Prescribed or Continued at Discharge Cerebrovascular accident Inclusion Criteria At DC or during hospital stay patient has or had the following: CVA/TIA Diagnosis No Discharge Core Measures Meds if any: Prescribed or Continued at Discharge Meds if any: NOT Prescribed or Continued at Discharge Venous thromboembolism Inclusion Criteria VTE Diagnosis No VTE Type NONE VTE Confirmed by (Test) NONE Discharge Core Measures - Per Current guidelines, there needs to be overlap - treatment for the first 5 days of Warfarin therapy. - If discharged on Warfarin prior to 5 days of - overlap therapy, the patient will need to be - assessed for post discharge needs including - *Post discharge parental anticoagulation - *Warfarin and/or parental anticoagulation education - *Follow up date to check INR post discharge At least 5 days overlap therapy as Inpatient No Meds if any: Prescribed or Continued at Discharge Note: Overlap Therapy is Warfarin and Anticoagulant Meds if any: NOT Prescribed or Continued at Discharge
--- NOTE | 2016-08-06 15:37 | Cons- Infect Disease ---
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, requiring multiple debridements and several courses of IV antibiotics, with cultures initially positive for Serratia and, subsequently, MSSA, with intermittent drainage despite this, status post debridement at [facility] 2 months prior to admission, with a pledget identified in the OR in the depth of the tract, with OR cultures negative but with pathology positive for chronic osteomyelitis, seen in the emergency room over 5 weeks prior to admission with copious drainage from the incision, found to be febrile to 101.6 with a white count of 18,[address] scan revealing a presternal fluid collection, with a superficial culture positive positive for alpha strep, given Oxacillin and Vancomycin and transferred to [place], where she underwent sternal wound debridement, with OR cultures 3 positive for coag-negative Staph, discharged home with a PICC on Vancomycin, Flagyl and Ciprofloxacin with plans for a six-week course, with the development of increasing shortness of breath and lower extremity edema over the past several weeks and with a nonpruritic rash on her back and extremities, admitted on August 05 after presenting to the emergency room with increasing shortness of breath, with no cough, chest pain, fevers or chills. On admission she was initially afebrile, but she did develop a low-grade fever of 100.2 overnight. Laboratory data revealed a white blood cell count of 13,000, BUN/ creatinine 15 and 0.9, BNP 8430. Vancomycin level 23. Urinalysis 1 to 3 WBCs. Chest x-ray revealed diffuse patchy opacity primarily involving the right middle and right lower lobes. CT of the chest revealed diffuse scattered ground glass opacities throughout the right lung, with the left lung clear. She was continued on Vancomycin, Flagyl and Ciprofloxacin. This morning she was given a dose of IV Lasix. At present she feels improved but does note increased shortness of breath with exertion. Allergies/Medications Allergies: Coded Allergies: lansoprazole (From Prevacid) (UNKNOWN 11/06/15) ranitidine (From Zantac) (UNKNOWN 11/06/15) sucralose (From Splenda (sucralose)) (UNKNOWN 11/06/15) Home Med List: Aspirin (Ecotrin*) 81 MG TABLET.DR 1 TAB PO DAILY CAD (Reported) Ciprofloxacin HCl (Cipro) 500 MG TABLET 1 TAB PO BID Skin infection (Reported ) Furosemide (Lasix) 40 MG TABLET 1 TAB PO DAILY FLUID RETENTION (Reported) Levothyroxine Sodium (Levoxyl) 75 MCG TABLET 1 TAB PO DAILY THYROID (Reported ) Metronidazole 500 MG TABLET 1 TAB PO BID Skin infection (Reported) Simvastatin (Zocor*) 10 MG TABLET 1 TAB PO QPM CHOLESTEROL (Reported) Past History Travel History Traveled to [place] past 21 day No Medical History Neurological: NONE EENT: NONE Cardiovascular: CAD, hypertension, hyperlipidemia, myocardial infarction Respiratory: NONE Gastrointestinal: NONE Hepatic: NONE Renal: NONE Musculoskeletal: NONE Psychiatric: NONE Endocrine: diabetes, hypothyroidism Blood Disorders: NONE Cancer(s): NONE DRAWING HAND/Reproductive: NONE History of MRSA: Yes History of VRE: No History of CDIFF: No Isolation History: Contact Influenza Vaccine: 05/26/16 Surgical History Surgical History: CABG, sternal debridements x8 Family History Relations & Conditions If Any: Relation not specified for: *No pertinent family history Psychosocial History Where Do You Live? Home Services at Home: None Smoking Status: Unknown If Ever Smoked ETOH Use: denies use Illicit Drug Use: denies illicit drug use Review of Systems Review of Systems All Other Systems: Reviewed and Negative Exam & Diagnostic Data Last 24 Hrs of Vital Signs/I&O Vital Signs Date Time Temp Pulse Resp B/P Pulse O2 O2 Flow FiO2 Ox Delivery Rate 08/06 1323 98.5 77 18 136/60 95 Nasal 2.0L Cannula 08/06 1102 98.4 75 20 124/57 95 Nasal 2.0L Cannula 08/06 1101 98.4 75 20 124/57 95 Nasal 2.0L Cannula 08/06 0800 98 Nasal 2.0L Cannula 08/06 0712 98.9 79 19 118/81 94 08/06 0700 98.9 79 20 118/81 94 Nasal 2.0L Cannula 08/06 0658 94 Nasal 2.0L Cannula 08/06 0117 100.2 68 18 127/79 94 Nasal 2.0L Cannula 08/05 2305 111 18 123/63 92 08/05 2058 Room Air 08/05 2056 65 18 97/46 96 08/05 2044 89 18 145/73 91 08/05 1848 122/76 08/05 1814 148/88 08/05 1759 96.9 92 18 92 Room Air Intake & Output 08/06 1600 08/06 0800 08/06 0000 Intake Total 150 Output Total 50 Balance -50 150 Intake, Oral 150 Output, 50 Drainage Patient 233 lb 233 lb Weight Physical Exam Other Physical Findings: She is awake and alert in no acute distress. MAXIMUM TEMPERATURE 100.2. Skin reveals a diffuse nonpruritic macular papular rash on her back and extremities. HEENT exam is negative. Neck is supple with no adenopathy. Chest sternum is stable, with incision clean, with no erythema or drainage; one POONAM drain in place , with serous fluid draining. Lungs bibasilar crackles, right greater than left. Heart regular rhythm with no murmur. Abdomen is obese, soft, nontender with positive bowel sounds. Back no CVA tenderness. Extremities 1-2 + edema both lower extremities. Neuro is without focality. Last 24 Hours of Lab Results: Laboratory Tests 08/06 08/06 0900 0700 Chemistry Sodium (137 - 145 mmol/L) 142 Potassium (3.5 - 5.1 mmol/L) 3.8 Chloride (98 - 107 mmol/L) 102 Carbon Dioxide (22 - 30 mmol/L) 27 Anion Gap (5 - 16) 13 BUN (7 - 17 mg/dL) 13 Creatinine (0.5 - 1.0 mg/dL) 0.8 Estimated GFR (>60 ml/min) > 60 BUN/Creatinine Ratio (7 - 25 %) 16.3 Magnesium (1.6 - 2.3 mg/dL) 1.6 Troponin I (< 0.11 ng/ml) 0.02 Hematology CBC w Diff NO MAN DIFF REQ WBC (4.8 - 10.8 /CUMM) 9.4 RBC (4.20 - 5.40 /CUMM) 3.62 L Hgb (12.0 - 16.0 G/DL) 10.3 L Hct (37 - 47 %) 31.4 L MCV (81.0 - 99.0 FL) 86.8 MCH (27.0 - 31.0 PG) 28.5 RDW (11.5 - 14.5 %) 17.3 H Plt Count (130 - 400 /CUMM) 541 H MPV (7.4 - 10.4 FL) 7.5 Gran % (42.2 - 75.2 %) 62.8 Lymphocytes % (20.5 - 51.1 %) 13.3 L Monocytes % (1.7 - 9.3 %) 17.9 H Eosinophils % (0 - 5 %) 4.9 Basophils % (0.0 - 2.0 %) 1.1 Absolute Granulocytes (1.4 - 6.5 /CUMM) 5.9 Absolute Lymphocytes (1.2 - 3.4 /CUMM) 1.3 Absolute Monocytes (0.10 - 0.60 /CUMM) 1.7 H Absolute Eosinophils (0.0 - 0.7 /CUMM) 0.5 Absolute Basophils (0.0 - 0.2 /CUMM) 0.1 PUBS MCHC (33.0 - 37.0 G/DL) 32.8 L ESR Westergren (0 - 20 MM) 37 H 08/060 5 5 2001 Chemistry Lactic Acid (0.7 - 2.1 mmol/L) 1.4 2.1 Troponin I (< 0.11 ng/ml) < 0.01 Urines Urinalysis LIGHT H Urine Color (YEL,AMB,STR) YEL Urine Clarity (CLEAR) CLEAR Urine pH (5.0 - 8.0) 6.5 Ur Specific [place] (1.001 - 1.035) 1.010 Urine Protein (NEG,<30 MG/DL) TRACE H Urine Ketones (NEG) NEG Urine Nitrite (NEG) NEG Urine Bilirubin (NEG) NEG Urine Urobilinogen (0.1 - 1.0 EU/dl) 0.2 Ur Leukocyte Esterase (NEG) NEG Ur Microscopic SEDIMENT EXAMINED Urine WBC (0 - 2 /HPF) 1-3 H Ur Epithelial Cells (NONE,FEW) FEW Urine Mucus (FEW,NONE) RARE Urine Hemoglobin (NEG) NEG Urine Glucose (N MG/DL) NEG 08/05 08/05 1811 1030 Blood Gas pH (7.35 - 7.45 PH) 7.50 H pCO2 (35 - 45 TORR) 29 L pO2 (80 - 100 TORR) 73 L HCO3 (21 - 28 MEQ/L) 21 ABG O2 Sat (Measured) (>96.0 %) 92.0 L P-50 (Temp Corrected) Y Carboxyhemoglobin (1.5 - 5.0 %) 0.8 L O2 Concentration % RA Temperature (97.0 - 100.0 FARH) 100.3 H O2 Delivery Method RA Chemistry Sodium (137 - 145 mmol/L) 142 Potassium (3.5 - 5.1 mmol/L) 3.3 L Chloride (98 - 107 mmol/L) 102 Carbon Dioxide (22 - 30 mmol/L) 26 Anion Gap (5 - 16) 14 BUN (7 - 17 mg/dL) 15 Creatinine (0.5 - 1.0 mg/dL) 0.9 Estimated GFR (>60 ml/min) > 60 BUN/Creatinine Ratio (7 - 25 %) 16.7 Glucose (65 - 99 mg/dL) 145 H Calcium (8.4 - 10.2 mg/dL) 8.6 Phosphorus (2.5 - 4.5 mg/dL) 3.0 Magnesium (1.6 - 2.3 mg/dL) 1.4 L Total Bilirubin (0.2 - 1.3 mg/dL) 0.5 AST (14 - 36 U/L) 23 ALT (9 - 52 U/L) 22 Alkaline Phosphatase (<127 U/L) 92 Troponin I (< 0.11 ng/ml) 0.02 [id number] Pept (<125 pg/mL) 8430 H Total Protein (6.3 - 8.2 g/dL) 5.8 L Albumin (3.5 - 5.0 g/dL) 3.1 L Globulin (1.9 - 4.2 gm/dL) 2.7 Albumin/Globulin Ratio (1.1 - 2.2 %) 1.1 Hematology CBC w Diff NO MAN DIFF REQ WBC (4.8 - 10.8 /CUMM) 12.9 H RBC (4.20 - 5.40 /CUMM) 3.96 L Hgb (12.0 - 16.0 G/DL) 11.2 L Hct (37 - 47 %) 34.3 L MCV (81.0 - 99.0 FL) 86.6 MCH (27.0 - 31.0 PG) 28.3 RDW (11.5 - 14.5 %) 17.0 H Plt Count (130 - 400 /CUMM) 606 H MPV (7.4 - 10.4 FL) 7.4 Gran % (42.2 - 75.2 %) 73.7 Lymphocytes % (20.5 - 51.1 %) 10.3 L Monocytes % (1.7 - 9.3 %) 12.2 H Eosinophils % (0 - 5 %) 3.2 Basophils % (0.0 - 2.0 %) 0.6 Absolute Granulocytes (1.4 - 6.5 /CUMM) 9.5 H Absolute Lymphocytes (1.2 - 3.4 /CUMM) 1.3 Absolute Monocytes (0.10 - 0.60 /CUMM) 1.6 H Absolute Eosinophils (0.0 - 0.7 /CUMM) 0.4 Absolute Basophils (0.0 - 0.2 /CUMM) 0.1 PUBS MCHC (33.0 - 37.0 G/DL) 32.7 L Miscellaneous Phlebotomy Draw Site RIGHT RADIAL Toxicology Vancomycin Trough (10.0 - 20.0 ug/mL) 23.0 H Last 24 Hours of Ayaz Results: Blood culture August 05 negative Blood culture August 06 pending Urine culture August 06 pending Urine strep pneumo antigen and Legionella antigen negative Rapid flu swab August 06 negative Diagnostic Data Recent Imaging Findings: Chest x-ray, personally reviewed, reveals diffuse patchy opacity primarily involving the right middle and right lower lobes. CT of the chest revealed diffuse scattered ground glass opacities throughout the right lung, with the left lung clear. Assessment/Plan Assessment/Plan Impression: This is a 76-year-old woman with a history of chronic/recurrent sternal wound osteomyelitis following a CABG 6 years prior to admission, treated with multiple courses of antibiotics and multiple debridements, with intermittent drainage, status post recent debridement at [facility] after presenting with increased drainage from the sternum, with fever, leukocytosis and evidence on CT scan of an abscess , with OR cultures at [facility] positive for coag negative Staph, treated with Vancomycin, Flagyl and Ciprofloxacin, with plans for 6 week course (to end August 14) admitted on August 05 with several weeks of increasing shortness of breath and lower extremity edema, found to have a low-grade fever with an elevated BNP and with the chest x-ray and CT scan revealing patchy opacities in the right lung. Though her imaging studies could suggest pneumonia, her history is more suggestive of congestive heart failure, supported by the lower extremity edema and the elevated BNP, and, as her temperatures and white blood cell count appear to have normalized without any change in her antibiotics, I suspect that this does represent CHF. Her rash may be antibiotic related, but she appears to be tolerating it; therefore would not change her current regimen. Of interest her OR culture only grew coag-negative Staph, for which Vancomycin alone should be adequate; however, as her treatment was initiated at [facility] and she only has 1 more week of antibiotics, would not recommend any changes at this time. The Vancomycin level obtained on admission likely represents a random level and is, therefore, of unclear significance. Her ESR was 37 today and can compare this with her labs at [facility]. Suggestion: 1. Would obtain a Vancomycin trough level with her next dose 2. Review laboratory data, including ESR, from [facility] 3. Further management of CHF per Cardiology 4. Discontinue Contact Isolation 5. Continue Vancomycin, Flagyl and Ciprofloxacin Consult Acknowledgment - Thank you for your consult request.
[2016-08-06 16:29] VITALS: BP 100/66
[2016-08-07 00:13] VITALS: BP 112/70
[2016-08-07 08:05] VITALS: BP 112/60
--- NOTE | 2016-08-07 09:32 | PN- Housestaff ---
Subjective Follow-up For: -worsening shortness of breath Complaints: no complaints Subjective: I have seen and examined the patient today morning.Patient stable, no compalints , labs willl be drwan with vanco trough levels.afebrile , remains 95% in 2 litres Review of Systems Constitutional: Reports: see HPI. EENTM: Denies: blurred vision, double vision, visual changes, eye drainage. Cardiovascular: Denies: chest pain, edema, orthopena, palpitations. Respiratory: Denies: cough, hemoptysis, orthopnea, short of breath. Gastrointestinal: Denies: abdominal pain, bloating, constipation, diarrhea. Genitourinary: Denies: discharge, dysuria, frequency, hematuria. Musculoskeletal: Reports: no symptoms. Skin: Reports: no symptoms. Neurological/Psychological: Reports: no symptoms. Hematologic/Endocrine: Reports: no symptoms. Immunologic/Allergic: Reports: no symptoms. Objective Last 24 Hrs of Vital Signs/I&O Vital Signs Date Time Temp Pulse Resp B/P Pulse O2 O2 Flow FiO2 Ox Delivery Rate 08/07 0805 98.1 63 20 112/60 95 Nasal 2.0L Cannula 08/07 0013 98.0 72 20 112/70 95 Nasal Cannula 08/07 0000 Nasal 2.0L Cannula 08/06 2000 Nasal 2.0L Cannula 08/06 1629 97.8 84 20 100/66 96 Nasal 2.0L Cannula 08/06 1600 95 Nasal 2.0L Cannula 08/06 1323 98.5 77 18 136/60 95 Nasal 2.0L Cannula 08/06 1102 98.4 75 20 124/57 95 Nasal 2.0L Cannula 08/06 1101 98.4 75 20 124/57 95 Nasal 2.0L Cannula Intake & Output 08/07 1600 08/07 0800 08/07 0000 Intake Total 450 240 Output Total 450 15 Balance 0 225 Intake, IV 250 Intake, Oral 200 240 Number 0 Bowel Movements Output, 15 Drainage Output, Urine 450 Physical Exam General Appearance: Alert, Oriented X3, Cooperative, No Acute Distress Skin: No Rashes, No Breakdown, No Significant Lesion HEENT: Atraumatic, PERRLA, EOMI Neck: Supple, No JVD Lymphatic: no lad Cardiovascular: Normal S1, Normal S2, No Murmurs Lungs: Clear to Auscultation, Normal Air Movement Abdomen: Normal Bowel Sounds, Soft, No Tenderness Neurological: Strength at 5/5 X4 Ext, Normal Tone, Cranial Nerves 3-12 NL Extremities: b.l edema, left upper extremtiy PICC line present Vascular: Normal Pulses Current Medications: Current Medications Sig/Louis Start time Last Medication Dose Route Stop Time Status Admin Aspirin Buffered 81 MG DAILY 08/06 1000 AC 08/06 PO 0945 Atorvastatin Calcium 5 MG 1700 08/06 1700 AC 08/06 PO 1725 Ciprofloxacin 500 MG BID 08/06 0118 AC 08/06 PO 08/10 0117 2223 Enoxaparin Sodium 40 MG DAILY 08/06 1000 AC 08/06 SC 0945 Furosemide 20 MG DAILY 08/07 1000 AC IV Furosemide 40 MG DAILY 08/06 1000 DC 08/06 PO 0945 Ibuprofen 600 MG Q6P PRN 08/06 0130 AC PO Levothyroxine Sodium 0.075 MG DAILY AC 08/06 0700 AC 08/07 PO 0542 Magnesium Oxide 400 MG ONCE ONE 08/06 1445 DC 08/06 PO 08/06 1446 1725 Melatonin 3 MG ONCE ONE 08/06 2045 CAN PO 08/06 2046 Metronidazole 500 MG BID 08/06 0118 AC 08/06 PO 2223 Nystatin 1 DASH BID 08/06 2200 AC 08/06 TOP 2228 Nystatin 1 DASH BID PRN 08/06 0130 AC TOP Oxycodone/ 1 TAB Q6P PRN 08/06 0130 AC 08/06 Acetaminophen PO 0135 Oxycodone/ 2 TAB Q6P PRN 08/06 0130 AC Acetaminophen PO Ramelteon 8 MG ONCE ONE 08/07 0415 DC 08/07 PO 08/07 0416 0413 Ramelteon 8 MG ONCE ONE 08/06 2100 DC 08/06 PO 08/06 2101 2222 Vancomycin HCl 750 MG Q12 08/06 1000 AC 08/06 Dextrose/Water 250 ML IV 2223 Last 24 Hrs of Lab/Ayaz Results Last 24 Hrs of Labs/Mics: Laboratory Tests 08/06/16 1650: Troponin I 0.02 Lines/Diet/Fluids Restraints: none Assessment/Plan Assessment: This is a 76-year-old female with past medical history of coronary artery disease status post CABG ( 2010) ,hypertension, type 2 diabetes mellitus, hypercholesterolemia, hypothyroidism,obesity, CABG complicated with sternal wound chronic osteomyelitis (initial cultures growing Serratia in 2010) , and the wound complicated multiple times, the first time treated with 6 weeks of ciprofloxacin, repeat debridement, the second time treated with oxacillin, however continued to have recurrent infection with multiple debridements after that,most recently underwent a debridement of the sternal wound and sternum with bilateral pectoralis muscle advancement flaps by Dr. Salcedo on 06/12/2016, with [address], out of which 3 were removed and one still in place, with most recent ER visit on 06/27/2016 when she was transferred to [place] from ER, for sternotomy with washout, was placed on 6 weeks of ciprofloxacin, Flagyl and vancomycin through the PICC line (last dose 08/14/2016) comes in today with chief complaint of worsening shortness of breath as last 3-4 weeks prior to admission, which has progressively worsened since last 1 week accompanied with worsening of bilateral lower extremity swelling. X-ray revealed diffuse patchy opacity primarily involving the middle and the right lower lobes most suggestive of pneumonia. CTA chest negative for pulmonary emboli She was admitted to general medicine floor for the treatment of following problems : #1 worsening shortness of breath most likely secondary to community-acquired pneumonia versus healthcare acquired pneumonia versus atypical congestive heart failure. * Patient has proBNP elevated. * Echo still pending. * However most likely the shortness of breath is secondary to pneumonia versus fluid overload in the setting of elevated proBNP. * Continue to monitor intake and output. * Continue to monitor daily weights. * Continue to monitor electrolytes and replete as necessary. * Continue IV Lasix 20 mg daily. #2 sternal wound infection status post multiple debridement with chronic osteomyeltis on ciprofloxacin and Flagyl and vancomycin. * Continue current antibiotic ciprofloxacin, Flagyl, vancomycin until August 14 * Vanco as per trough levels today which are awaited. * wound site and picc looks clean, ct to monitor for infection daily. * continue to follow cultures #3 new EKG changes with increase atrial ectopy. * We will continue to trend troponin and EKG. * All thress sents of troponin negative. * ct telemetry monitoring. #4 hypomagnesemia/hypokalemia. * We'll continue to monitor daily and repeat as necessary. #5 hypothyroidism. * Continue Synthyroid 0.075 mg daily #6 hyperlipidemia * Ct Lipitor 5 mg daily. #7 history of coronary artery disease status post CABG. * Continue aspirin 81 mg daily. Trazodone when necessary for sleep. Patient is full code. DVT prophylaxis with Lovenox. Mild/moderate and severe pain pathway ordered. Problem List: 1. Wound infection after surgery 2. [facility] (current) use of antibiotics 3. Bilateral lower extremity edema 4. Respiratory alkalosis 5. Pneumonia Pain Ratin Pain Location: na Pain Goal: Remain pain free Pain Plan: tylenol Tomorrow's Labs & Rationales: todays lab still awaited DVT/Prophylaxis: pharmacological
[2016-08-07 10:57] LABS: ABSOLUTE BASOPHIL COUNT 0 /CUMM (0.0-0.2); ABSOLUTE EOSINOPHIL COUNT 0.3 /CUMM (0.0-0.7); ABSOLUTE GRANULOCYTE CT 8.3 /CUMM (1.4-6.5); ABSOLUTE LYMPH COUNT 1.2 /CUMM (1.2-3.4); ABSOLUTE MONOCYTE COUNT 1.6 /CUMM (0.10-0.60); BASOPHIL % 0.2 % (0.0-2.0); GRANULOCYTE % 72.7 % (42.2-75.2); HEMATOCRIT 34.2 % (37-47); MEAN CORPUSCULAR HGB 28.3 PG (27.0-31.0); MEAN CORPUSCULAR HGB CONC 32.6 G/DL (33.0-37.0); MEAN CORPUSCULAR VOLUME 86.8 FL (81.0-99.0); MEAN PLATELET VOLUME 7.3 FL (7.4-10.4); PLATELET COUNT 535 /CUMM (130-400); RBC DISTRIBUTION WIDTH 17.2 % (11.5-14.5); RED BLOOD CELL CT 3.94 /CUMM (4.20-5.40); WHITE BLOOD CELL COUNT 11.4 /CUMM (4.8-10.8)
--- NOTE | 2016-08-07 11:10 | PN- Pulmonary ---
Subjective HPI/Critical Care Issues: Patient seen and examined. No chest pain, dyspnea improving slowly. No nausea, vomiting, diarrhea or constipation. Afebrile and hemodynamically stable. Objective Current Medications: Current Medications Sig/Louis Start time Last Medication Dose Route Stop Time Status Admin Aspirin Buffered 81 MG DAILY 08/06 1000 AC 08/07 PO 1031 Atorvastatin Calcium 5 MG 1700 08/06 1700 AC 08/06 PO 1725 Ciprofloxacin 500 MG BID 08/06 0118 AC 08/07 PO 08/10 0117 1032 Enoxaparin Sodium 40 MG DAILY 08/06 1000 AC 08/07 SC 1031 Furosemide 20 MG DAILY 08/07 1000 AC 08/07 IV 1033 Furosemide 40 MG DAILY 08/06 1000 DC 08/06 PO 0945 Ibuprofen 600 MG Q6P PRN 08/06 0130 AC PO Levothyroxine Sodium 0.075 MG DAILY AC 08/06 0700 AC 08/07 PO 0542 Magnesium Oxide 400 MG ONCE ONE 08/06 1445 DC 08/06 PO 08/06 1446 1725 Melatonin 3 MG ONCE ONE 08/06 2045 CAN PO 08/06 2046 Metronidazole 500 MG BID 08/06 0118 AC 08/07 PO 1031 Nystatin 1 DASH BID 08/06 2200 AC 08/07 TOP 1032 Nystatin 1 DASH BID PRN 08/06 0130 AC TOP Oxycodone/ 1 TAB Q6P PRN 08/06 0130 AC 08/06 Acetaminophen PO 0135 Oxycodone/ 2 TAB Q6P PRN 08/06 0130 AC Acetaminophen PO Ramelteon 8 MG ONCE ONE 08/07 0415 DC 08/07 PO 08/07 0416 0413 Ramelteon 8 MG ONCE ONE 08/06 2100 DC 08/06 PO 08/06 2101 2222 Vancomycin HCl 750 MG Q12 08/06 1000 AC 08/07 Dextrose/Water 250 ML IV 1032 Vital Signs & I&O Last 24 Hrs of Vitals and I&O: Vital Signs Date Time Temp Pulse Resp B/P Pulse O2 O2 Flow FiO2 Ox Delivery Rate 08/07 0805 98.1 63 20 112/60 95 Nasal 2.0L Cannula 08/07 0013 98.0 72 20 112/70 95 Nasal Cannula 08/07 0000 Nasal 2.0L Cannula 08/06 1999 Nasal 2.0L Cannula 08/06 1629 97.8 84 20 100/66 96 Nasal 2.0L Cannula 08/06 1600 95 Nasal 2.0L Cannula 08/06 1323 98.5 77 18 136/60 95 Nasal 2.0L Cannula Intake & Output 08/07 1600 08/07 0800 08/07 0000 Intake Total 450 240 Output Total 450 15 Balance 0 225 Intake, IV 250 Intake, Oral 200 240 Number 0 Bowel Movements Output, 15 Drainage Output, Urine 450 Exam Other Physical Findings: General - Alert, awake and oriented HEENT - normocephalic, atraumatic Cardiovascular - S1, S2, systolic murmur Lungs - slightly diminished breath sounds bilaterally however on the right crackles are more prominent Abdomen - obese, soft, bowel sounds positive, no tenderness Extremities - significant bilateral 2+ improved Results Last 24 Hrs of Lab Results: Laboratory Tests 08/07/16 1040: Sodium Pending, Potassium Pending, Chloride Pending, Carbon Dioxide Pending, Anion Gap Pending, BUN Pending, Creatinine Pending, BUN/Creatinine Ratio Pending , CBC w Diff NO MAN DIFF REQ, RBC 3.94 L, MCV 86.8, MCH 28.3, RDW 17.2 H, MPV 7.3 L, Gran % 72.7, Lymphocytes % 10.2 L, Monocytes % 13.9 H, Eosinophils % 3.0, Basophils % 0.2, Absolute Granulocytes 8.3 H, Absolute Lymphocytes 1.2, Absolute Monocytes 1.6 H, Absolute Eosinophils 0.3, Absolute Basophils 0, PUBS MCHC 32.6 L, Vancomycin Trough Pending 08/06/16 1650: Troponin I 0.02 Impression/Plan Impression/Plan Impression/Plan: Impression 76-year-old woman -history of CABG in 2010, complicated by by sternal wounds and osteomyelitis requiring multiple antibiotic courses, admissions, PICC line placement recently and on vancomycin and ciprofloxacin and Flagyl for therapy. -shortness of breath is subacute in nature over the past week getting worse. Significant edema is present in the setting of an elevated proBNP 8430. Her CAT scan findings are not clearly sales promotion representative of congestive heart failure given the unilateral issue however an atypical presentations possible. She is without a fever nor leukocytosis at this time. Plan -Primary team is calling infectious disease consultation would be useful to see if any adjustment to medications are necessary -echocardiogram f/u to evaluate heart function and possible pulmonary pressures -CAT scan of the chest would be appropriate for resolution after hospitalization unless clinically warranted to repeat earlier -Continue diuresis and monitoring ins and outs -DVT prophylaxis at all times
--- NOTE | 2016-08-07 15:24 | PN- Infect Dx ---
Subjective Subjective: Afebrile. She feels better though she remains short of breath with exertion. She does note decreased lower extremity edema. Objective Last 24 Hrs of Vital Signs/I&O Vital Signs Date Time Temp Pulse Resp B/P Pulse O2 O2 Flow FiO2 Ox Delivery Rate 08/07 0805 98.1 63 20 112/60 95 Nasal 2.0L Cannula 08/07 0800 Nasal 2.0L Cannula 08/07 0013 98.0 72 20 112/70 95 Nasal Cannula 08/07 0000 Nasal 2.0L Cannula 08/06 2000 Nasal 2.0L Cannula 08/06 1629 97.8 84 20 100/66 96 Nasal 2.0L Cannula 08/06 1600 95 Nasal 2.0L Cannula Intake & Output 08/07 1600 08/07 0800 08/07 0000 Intake Total 300 450 240 Output Total 450 15 Balance 300 0 225 Intake, IV 300 250 Intake, Oral 200 240 Number 0 Bowel Movements Output, 15 Drainage Output, Urine 450 Physical Exam Other Physical Findings: She appears comfortable in no acute distress Lungs crackles at the left base Chest sternum stable, with drain in place Heart regular rhythm with no murmur Extremities PICC in the left upper extremity with no inflammation at the site; 1 + edema both lower extremities Results Last 24 Hours of Lab Results: Laboratory Tests 08/07 08/06 1040 1650 Chemistry Sodium (137 - 145 mmol/L) 140 Potassium (3.5 - 5.1 mmol/L) 3.5 Chloride (98 - 107 mmol/L) 99 Carbon Dioxide (22 - 30 mmol/L) 26 Anion Gap (5 - 16) 15 BUN (7 - 17 mg/dL) 12 Creatinine (0.5 - 1.0 mg/dL) 0.9 Estimated GFR (>60 ml/min) > 60 BUN/Creatinine Ratio (7 - 25 %) 13.3 Troponin I (< 0.11 ng/ml) 0.02 Hematology CBC w Diff NO MAN DIFF REQ WBC (4.8 - 10.8 /CUMM) 11.4 H RBC (4.20 - 5.40 /CUMM) 3.94 L Hgb (12.0 - 16.0 G/DL) 11.1 L Hct (37 - 47 %) 34.2 L MCV (81.0 - 99.0 FL) 86.8 MCH (27.0 - 31.0 PG) 28.3 RDW (11.5 - 14.5 %) 17.2 H Plt Count (130 - 400 /CUMM) 535 H MPV (7.4 - 10.4 FL) 7.3 L Gran % (42.2 - 75.2 %) 72.7 Lymphocytes % (20.5 - 51.1 %) 10.2 L Monocytes % (1.7 - 9.3 %) 13.9 H Eosinophils % (0 - 5 %) 3.0 Basophils % (0.0 - 2.0 %) 0.2 Absolute Granulocytes (1.4 - 6.5 /CUMM) 8.3 H Absolute Lymphocytes (1.2 - 3.4 /CUMM) 1.2 Absolute Monocytes (0.10 - 0.60 /CUMM) 1.6 H Absolute Eosinophils (0.0 - 0.7 /CUMM) 0.3 Absolute Basophils (0.0 - 0.2 /CUMM) 0 PUBS MCHC (33.0 - 37.0 G/DL) 32.6 L Toxicology Vancomycin Trough (10.0 - 20.0 ug/mL) 15.4 Last 24 Hours of Ayaz Results: Blood culture August 05 negative Blood culture August 06 negative Urine culture August 06 negative Assessment/Plan Impression: Stable with no further fevers on Vancomycin, Flagyl and Ciprofloxacin for a sternal wound infection/osteomyelitis now status post 5 weeks of treatment for a coag-negative Staph isolated from 3 OR cultures at [place], where she underwent debridement. It is not clear why she was continued on Flagyl and Ciprofloxacin given the OR cultures. Her white blood cell count has increased slightly of unclear significance. Her Vancomycin trough level of 15 is therapeutic. Her current presentation is likely secondary to CHF, though she has not diuresed significantly. Suggestion: 1. Review laboratory data, including ESR, from [place] 2. Further management of CHF per Cardiology 3. Continue Vancomycin, Flagyl (would verify the dose as she is only on every 12 hours) and Ciprofloxacin
[2016-08-07 15:31] VITALS: BP 114/62
--- NOTE | 2016-08-07 16:31 | ECHOCARDIOGRAM REPORT ---
AMELIA PERAZA Age: 76 : 1940 Gender: F Exam Date: 08/07/2016 08:47 Exam Location: [facility] Ht (in): 62 Wt (lb): 233 BSA: 2.21 BP: 100 / 66 Ordering Physician: BRYON KIMBALL MD Referring Physician: BRYON KIMBALL MD Technologist: Silvestre Joshi [facility] Room Number: [id number] Indications: SHORTNESS OF BREATH Rhythm: Sinus Technical Quality: Fair FINDINGS Left Ventricle Normal size left ventricle. No obvious regional wall motion abnormalities. Left ventricular wall thickness moderately increased. Normal left ventricular ejection fraction estimated at 55-60%. Right Ventricle Normal right ventricular size and function. Right Atrium Normal right atrial size. Left Atrium Left atrial dilatation. Mitral Valve Mitral valve thickened. Severe mitral annular calcification. Mild mitral regurgitation. Aortic Valve Trileaflet aortic valve. Diffuse thickening (sclerosis) of the aortic valve cusps without reduced excursion. No aortic stenosis. Trace to mild aortic regurgitation. Tricuspid Valve Tricuspid valve not well visualized, grossly normal. Mild tricuspid regurgitation. Right ventricular systolic pressure estimated to be elevated at 54 mmHg. Pulmonic Valve Pulmonic valve not well visualized, grossly normal. Mild pulmonic regurgitation. Pericardium Normal pericardium. No pericardial effusion. Great Vessels Aortic root and proximal ascending aorta not well visualized, grossly normal. CONCLUSIONS 1. Moderate aortic sclerosis is present with minimal to mild aortic insufficiency. 2. MItral leaflet thickening is present with moderate to severe anular calcification and mild mitral insufficiency with mild left atrial enlargement. 3. THere is no pericardial fluid present. 4. The left ventricular chamber size and systolic function are normal. Moderate concentric hypertrophy is present. There are no resting wall motion abnormalities. 5. Fibrosis of the papillary muscles is present. 6. Mild tricuspid and pulmonary insufficiency are present with pulmonary hypertension and an estimated RV systolic pressure of 54 mmHg. Jackeline Mehta M.D. (Electronically Signed) Final Date: 07 August 2016 16:30 MEASUREMENTS (Male / Female) Normal Values 2D ECHO LV Diastolic Diameter PLAX 4.5 cm 4.2 - 5.9 / 3.9 - 5.3 cm LV Systolic Diameter PLAX 3.1 cm 2.1 - 4.0 cm LV Fractional Shortening PLAX 31.1 % 25 - 46 % LV Ejection Fraction 2D Teich 59.0 % IVS Diastolic Thickness 1.5 cm LVPW Diastolic Thickness 1.6 cm LV Relative Wall Thickness 0.7 LVOT Diameter 1.9 cm Aortic Root Diameter 2.9 cm LA Systolic Diameter LX 4.3 cm 3.0 - 4.0 / 2.7 - 3.8 cm LV Ejection Fraction MOD BP 59.6 % >= 55 % LV Diastolic Length 4C 8.1 cm 6.9 - 10.3 cm LV Diastolic Area 4C 29.2 cm LV Diastolic Volume MOD 4C 86.0 cm LV Ejection Fraction MOD 4C 61.6 % LV Stroke Volume MOD 4C 53.0 cm LV Systolic Length 4C 6.6 cm LV Systolic Area 4C 15.6 cm LV Systolic Volume MOD 4C 33.0 cm LV Ejection Fraction MOD 2C 53.7 % LV Diastolic Volume 4C AL 89.4 cm 85 - 139 / 69 - 109 cm LV Systolic Volume 4C AL 31.3 cm LV Ejection Fraction 4C AL 64.9 % LV Stroke Volume 4C AL 58.0 cm LV Ejection Fraction 2C AL 54.9 % LA Volume 76.0 cm 18 - 58 / 22 - 52 cm Ascending Aorta Diameter 2.9 cm DOPPLER AV Peak Velocity 155.0 cm/s AV Peak Gradient 9.6 mmHg AV Mean Velocity 108.0 cm/s AV Mean Gradient 6.0 mmHg AV Velocity Time Integral 36.5 cm LVOT Peak Velocity 112.0 cm/s LVOT Peak Gradient 5.0 mmHg LVOT Mean Velocity 74.6 cm/s LVOT Mean Gradient 3.0 mmHg LVOT Velocity Time Integral 26.8 cm LVOT Stroke Volume 76.0 cm AV Area Cont Eq vti 2.1 cm AV Area Cont Eq pk 2.0 cm MV Peak Velocity 136.0 cm/s MV Peak Gradient 7.4 mmHg MV Mean Velocity 66.8 cm/s MV Mean Gradient 2.0 mmHg Mitral E Point Velocity 122.0 cm/s Mitral A Point Velocity 90.8 cm/s Mitral E to A Ratio 1.3 MV PHT Velocity 144.0 cm/s MV Deceleration [place] 469.0 cm/s MV Pressure Half Time 92.1 ms MV Area PHT 2.4 cm MV Deceleration Time 123.0 ms TR Peak Velocity 333.0 cm/s TR Peak Gradient 44.4 mmHg Right Atrial Pressure 10.0 mmHg Pulmonary Artery Systolic Pressu 54.4 mmHg Right Ventricular Systolic Press 54.4 mmHg
--- NOTE | 2016-08-07 16:55 | PN- Cardiology ---
Subjective Subjective: Doing somewhat better with diuresis. Objective Vital Signs and I&Os Vital Signs Date Time Temp Pulse Resp B/P Pulse O2 O2 Flow FiO2 Ox Delivery Rate 08/07 1531 97.8 70 20 114/62 98 Nasal 2.0L Cannula 08/07 0805 98.1 63 20 112/60 95 Nasal 2.0L Cannula 08/07 0800 Nasal 2.0L Cannula 08/07 0013 98.0 72 20 112/70 95 Nasal Cannula 08/07 0000 Nasal 2.0L Cannula 08/06 2000 Nasal 2.0L Cannula Intake & Output 08/07 1600 08/07 0800 08/07 0000 08/06 1600 08/06 0800 08/06 0000 Intake Total 300 450 240 550 150 Output Total 450 15 350 Balance 300 0 225 200 150 Intake, IV 300 250 Intake, Oral 200 240 550 150 Number 0 Bowel Movements Output, 15 50 Drainage Output, Urine 450 300 Patient 233 lb 233 lb Weight Current Medications: Current Medications Sig/Louis Start time Last Medication Dose Route Stop Time Status Admin Alteplase, 2 MG ONE ONE 08/07 1600 DC 08/07 Recombinant IV 08/07 1601 1615 Aspirin Buffered 81 MG DAILY 08/06 1000 AC 08/07 PO 1031 Atorvastatin Calcium 5 MG 1700 08/06 1700 AC 08/06 PO 1725 Ciprofloxacin 500 MG BID 08/06 0118 AC 08/07 PO 08/10 0117 1032 Enoxaparin Sodium 40 MG DAILY 08/06 1000 AC 08/07 SC 1031 Furosemide 20 MG DAILY 08/07 1000 AC 08/07 IV 1033 Ibuprofen 600 MG Q6P PRN 08/06 0130 AC PO Levothyroxine Sodium 0.075 MG DAILY AC 08/06 0700 AC 08/07 PO 0542 Melatonin 3 MG ONCE ONE 08/06 2045 CAN PO 08/06 2046 Metronidazole 500 MG BID 08/06 0118 AC 08/07 PO 1031 Nystatin 1 DASH BID 08/06 2200 AC 08/07 TOP 1032 Nystatin 1 DASH BID PRN 08/06 0130 AC TOP Oxycodone/ 1 TAB Q6P PRN 08/06 0130 AC 08/06 Acetaminophen PO 0135 Oxycodone/ 2 TAB Q6P PRN 08/06 0130 AC Acetaminophen PO Potassium Chloride 40 MEQ ONCE ONE 08/07 1600 DC PO 08/07 1601 Ramelteon 8 MG ONCE ONE 08/075 DC 08/07 PO 08/07 0416 0413 Ramelteon 8 MG ONCE ONE 08/06 2100 DC 08/06 PO 08/06 2101 2222 Vancomycin HCl 750 MG Q12 08/06 1000 AC 08/07 Dextrose/Water 250 ML IV 1032 Results Last 48 Hrs of Labs/Mics: Laboratory Tests 08/07/16 1040: Anion Gap 15, Estimated GFR > 60, BUN/Creatinine Ratio 13.3, Magnesium 1.7, CBC w Diff NO MAN DIFF REQ, RBC 3.94 L, MCV 86.8, MCH 28.3, RDW 17.2 H, MPV 7.3 L , Gran % 72.7, Lymphocytes % 10.2 L, Monocytes % 13.9 H, Eosinophils % 3.0, Basophils % 0.2, Absolute Granulocytes 8.3 H, Absolute Lymphocytes 1.2, Absolute Monocytes 1.6 H, Absolute Eosinophils 0.3, Absolute Basophils 0, PUBS MCHC 32.6 L, Vancomycin Trough 15.4 08/06/16 1650: Troponin I 0.02 08/06/16 0900: Anion Gap 13, Estimated GFR > 60, BUN/Creatinine Ratio 16.3, Magnesium 1.6, Troponin I 0.02 08/06/16 0700: CBC w Diff NO MAN DIFF REQ, RBC 3.62 L, MCV 86.8, MCH 28.5, RDW 17.3 H, MPV 7.5, Gran % 62.8, Lymphocytes % 13.3 L, Monocytes % 17.9 H, Eosinophils % 4.9, Basophils % 1.1, Absolute Granulocytes 5.9, Absolute Lymphocytes 1.3, Absolute Monocytes 1.7 H, Absolute Eosinophils 0.5, Absolute Basophils 0.1, PUBS MCHC 32.8 L, ESR Westergren 37 H 08/06/16 0200: Urinalysis LIGHT H, Urine Color YEL, Urine Clarity CLEAR, Urine pH 6.5, Ur Specific [place] 1.010, Urine Protein TRACE H, Urine Ketones NEG, Urine Nitrite NEG, Urine Bilirubin NEG, Urine Urobilinogen 0.2, Ur Leukocyte Esterase NEG, Ur Microscopic SEDIMENT EXAMINED, Urine WBC 1-3 H, Ur Epithelial Cells FEW, Urine Mucus RARE, Urine Hemoglobin NEG, Urine Glucose NEG 08/06/16 0135: Troponin I < 0.01 08/06/16 0135: Lactic Acid 1.4 08/05/162001: Lactic Acid 2.1 08/05/16 1850: pH 7.50 H, pCO2 29 L, pO2 73 L, HCO3 21, ABG O2 Sat (Measured) 92.0 L, P-50 (Temp Corrected) Y, Carboxyhemoglobin 0.8 L, O2 Concentration % RA, Temperature 100.3 H, O2 Delivery Method RA, Phlebotomy Draw Site RIGHT RADIAL 08/05/16 1823: Anion Gap 14, Estimated GFR > 60, BUN/Creatinine Ratio 16.7, Glucose 145 H, Calcium 8.6, Phosphorus 3.0, Magnesium 1.4 L, Total Bilirubin 0.5, AST 23, ALT 22, Alkaline Phosphatase 92, Troponin I 0.02, Ups-B-Hhkgffodgok Pept 8430 H, Total Protein 5.8 L, Albumin 3.1 L, Globulin 2.7, Albumin/Globulin Ratio 1.1, CBC w Diff NO MAN DIFF REQ, RBC 3.96 L, MCV 86.6, MCH 28.3, RDW 17.0 H, MPV 7.4, Gran % 73.7, Lymphocytes % 10.3 L, Monocytes % 12.2 H, Eosinophils % 3.2, Basophils % 0.6, Absolute Granulocytes 9.5 H, Absolute Lymphocytes 1.3, Absolute Monocytes 1.6 H, Absolute Eosinophils 0.4, Absolute Basophils 0.1, PUBS MCHC 32.7 L, Vancomycin Trough 23.0 H Assessment/Plan Assessment/Plan Assessment: 1. Worsening shortness of breath; possible right-sided pneumonia versus atypical congestive heart failure 2. Elevated proBNP; rule out new atypical congestive heart failure 3. History of coronary artery disease, status post bypass surgery 4. Sternal wound infection; status post multiple interventions/debridements 5. New ECG abnormalities 6. Increased atrial ectopy 7. Hypokalemia and hypomagnesemia 8. Hypothyroidism 9. Hyperlipidemia 10. Thrombocytosis Recommendations: -Continue current antibiotic regimen -Echocardiogram to reassess left ventricular function -Increase lasix to 40 IV bid in the hopes of improved diuresis - Continue to monitor I/Os and weight. -Replete potassium and magnesium. Recheck in 24 hours -Followup CXR pa and lat in am - Continue to taper O2 as tolerated - If the patient remains stable, O2 tapered off and fluid status stable, consideration for possible discharge Wednesday. Continue telemetry? Yes
[2016-08-08 00:11] VITALS: BP 100/68
[2016-08-08 08:20] VITALS: BP 108/60
--- NOTE | 2016-08-08 08:46 | PN- Housestaff ---
Subjective Follow-up For: -worsening shortness of breath Complaints: pain scale (0-10) Tele-Events Since Last Visit: Sinus rhythm 63-70 Subjective: Patient was seen and examined this morning. She is alert awake and oriented to time place and person. No acute events noticed overnight. Patient is stable. does report shortness of breath on exertion. Denies cough or sputum production. Denies chest pain. She is afebrile, heart rate 72, respiratory 20, blood pressure 108/60, saturating at 96% on 1.5 L oxygen. Review of Systems Constitutional: Denies: see HPI. Objective Last 24 Hrs of Vital Signs/I&O Vital Signs Date Time Temp Pulse Resp B/P Pulse O2 O2 Flow FiO2 Ox Delivery Rate 08/08 0820 97.8 72 20 108/60 96 Nasal 1.5L Cannula 08/08 0011 98.6 63 20 100/68 97 Nasal 1.5L Cannula 08/08 0000 Nasal 2.0L Cannula 08/07 1600 Nasal 2.0L Cannula 08/07 1531 97.8 70 20 114/62 98 Nasal 2.0L Cannula Intake & Output 08/08 1600 08/08 0800 08/08 0000 Intake Total 130 850 Output Total 365 600 Balance -235 250 Intake, IV 10 250 Intake, Oral 120 600 Number 1 Bowel Movements Output, 15 Drainage Output, Urine 350 600 Patient 100.244 kg Weight Physical Exam General Appearance: Alert, Oriented X3, Cooperative, No Acute Distress Skin: No Rashes, No Breakdown HEENT: Atraumatic, Mucous Membr. moist/pink Neck: Supple, No JVD Lymphatic: Cervical nl Cardiovascular: Normal S1, Normal S2 Lungs: Clear to Auscultation Abdomen: Normal Bowel Sounds, Soft, No Tenderness Extremities: No Clubbing, No Cyanosis, bilateral lower extremity edema, left upper extremity PICC line Vascular: Normal Pulses Current Medications: Current Medications Sig/Louis Start time Last Medication Dose Route Stop Time Status Admin Alteplase, 2 MG ONE ONE 08/07 1600 DC 08/07 Recombinant IV 08/07 1601 1615 Aspirin Buffered 81 MG DAILY 08/06 1000 AC 08/08 PO 0910 Atorvastatin Calcium 5 MG 1700 08/06 1700 AC 08/07 PO 1652 Ciprofloxacin 500 MG BID 08/06 0118 AC 08/08 PO 08/10 0117 0910 Enoxaparin Sodium 40 MG DAILY 08/06 1000 AC 08/08 SC 0911 Furosemide 40 MG BID 08/07 2200 AC 08/08 IV 0911 Furosemide 20 MG DAILY 08/07 1000 DC 08/07 IV 1033 Ibuprofen 600 MG .STK-MED ONE 08/07 1816 DC PO 08/07 1817 Ibuprofen 600 MG Q6P PRN 08/06 0130 AC 08/08 PO 0913 Levothyroxine Sodium 0.075 MG DAILY AC 08/06 0700 AC 08/08 PO 0601 Metronidazole 500 MG BID 08/06 0118 AC 08/08 PO 0911 Nystatin 1 DASH BID 08/06 2200 AC 08/08 TOP 0942 Nystatin 1 DASH BID PRN 08/06 0130 AC TOP Oxycodone/ 1 TAB Q6P PRN 08/06 0130 AC 08/07 Acetaminophen PO 1652 Oxycodone/ 2 TAB Q6P PRN 08/06 0130 AC Acetaminophen PO Potassium Chloride 40 MEQ ONCE ONE 08/07 1600 DC 08/07 PO 08/07 1601 1652 Ramelteon 8 MG ONCE ONE 08/07 2100 DC 08/07 PO 08/07 2101 2112 Vancomycin HCl 750 MG Q12 08/06 1000 AC 08/08 Dextrose/Water 250 ML IV 0941 Last 24 Hrs of Lab/Ayaz Results Last 24 Hrs of Labs/Mics: Laboratory Tests 08/08/16 0605: Anion Gap 13, Estimated GFR 54 L, BUN/Creatinine Ratio 12.0 08/07/16 1040: Anion Gap 15, Estimated GFR > 60, BUN/Creatinine Ratio 13.3, Magnesium 1.7, CBC w Diff NO MAN DIFF REQ, RBC 3.94 L, MCV 86.8, MCH 28.3, RDW 17.2 H, MPV 7.3 L , Gran % 72.7, Lymphocytes % 10.2 L, Monocytes % 13.9 H, Eosinophils % 3.0, Basophils % 0.2, Absolute Granulocytes 8.3 H, Absolute Lymphocytes 1.2, Absolute Monocytes 1.6 H, Absolute Eosinophils 0.3, Absolute Basophils 0, PUBS MCHC 32.6 L, Vancomycin Trough 15.4 Assessment/Plan Assessment: This is a 76-year-old female with past medical history of coronary artery disease status post CABG ( 2010) ,hypertension, type 2 diabetes mellitus, hypercholesterolemia, hypothyroidism,obesity, CABG complicated with sternal wound chronic osteomyelitis (initial cultures growing Serratia in 2010) , and the wound complicated multiple times, the first time treated with 6 weeks of ciprofloxacin, repeat debridement, the second time treated with oxacillin, however continued to have recurrent infection with multiple debridements after that,most recently underwent a debridement of the sternal wound and sternum with bilateral pectoralis muscle advancement flaps by Dr. Salcedo on 06/12/2016, with [address], out of which 3 were removed and one still in place, with most recent ER visit on 06/27/2016 when she was transferred to [place] from ER, for sternotomy with washout, was placed on 6 weeks of ciprofloxacin, Flagyl and vancomycin through the PICC line (last dose 08/14/2016) comes in today with chief complaint of worsening shortness of breath as last 3-4 weeks prior to admission, which has progressively worsened since last 1 week accompanied with worsening of bilateral lower extremity swelling. X-ray revealed diffuse patchy opacity primarily involving the middle and the right lower lobes most suggestive of pneumonia. CTA chest negative for pulmonary emboli She was admitted to general medicine floor for the treatment of following problems : #1 worsening shortness of breath most likely secondary to community-acquired pneumonia versus healthcare acquired pneumonia versus atypical congestive heart failure. * Patient has proBNP elevated. * Echo still pending. * However most likely the shortness of breath is secondary to pneumonia versus fluid overload in the setting of elevated proBNP. * Continue to monitor intake and output. * Continue to monitor daily weights. * Continue to monitor electrolytes and replete as necessary. * Continue IV Lasix 40 mg bid daily. #2 sternal wound infection status post multiple debridement with chronic osteomyeltis on ciprofloxacin and Flagyl and vancomycin. * Continue current antibiotic ciprofloxacin, Flagyl, vancomycin until August 14 * Vanco as per trough levels -15.4 * wound site and picc looks clean, * continue to follow cultures #3 new EKG changes with increase atrial ectopy. * We will continue to trend troponin and EKG. * All thress sents of troponin negative. * ct telemetry monitoring. #4 hypomagnesemia/hypokalemia. * We'll continue to monitor daily and repeat as necessary. #5 hypothyroidism. * Continue Synthyroid 0.075 mg daily #6 hyperlipidemia * Ct Lipitor 5 mg daily. #7 history of coronary artery disease status post CABG. * Continue aspirin 81 mg daily. Trazodone when necessary for sleep. Patient is full code. DVT prophylaxis with Lovenox. Mild/moderate and severe pain pathway ordered. Problem List: 1. Wound infection after surgery 2. Bilateral lower extremity edema 3. Pneumonia Pain Ratin Pain Location: n/a Pain Goal: Remain pain free Pain Plan: nuris Tomorrow's Labs & Rationales: bep in the setting of electrolyte imbalance
--- NOTE | 2016-08-08 15:04 | RADIOLOGY REPORT ---
EXAMINATION: XR CHEST CLINICAL INFORMATION: Shortness of breath. Pneumonia versus CHF. COMPARISON: Chest radiography and CTA chest 08/05/2016. TECHNIQUE: PA and lateral views of the chest were obtained. FINDINGS: The lungs are well expanded. Multifocal right lung consolidation is redemonstrated. Minimal left basilar opacification may represent atelectasis or other consolidation. Left-sided PICC line with tip terminating at the expected location of the distal left innominate vein near the origin of the SVC. Mediastinal contours are unchanged, with prominent cardiac contour are redemonstrated. No acute osseous abnormalities. Left axillary/thoracic surgical clips. IMPRESSION: Persistent multifocal right lung consolidation, as was demonstrated on recent thoracic imaging. Overall no significant interval change. Minimal left basilar opacification may represent atelectasis or other consolidation.
[2016-08-08 16:00] VITALS: BP 108/66
--- NOTE | 2016-08-08 21:35 | PN- Cardiology ---
Subjective Subjective: No specific complaints. Admits to dyspnea on exertion, but feels her breathing and edema have both improved overall. Objective Vital Signs and I&Os Vital Signs Date Time Temp Pulse Resp B/P Pulse O2 O2 Flow FiO2 Ox Delivery Rate 08/08 1600 98.4 98 20 108/66 99 Nasal 1.5L Cannula 08/08 0820 97.8 72 20 108/60 96 Nasal 1.5L Cannula 08/08 0800 96 Nasal 2.0L Cannula 08/08 0011 98.6 63 20 100/68 97 Nasal 1.5L Cannula 08/08 0000 Nasal 2.0L Cannula Intake & Output 08/08 1600 08/08 0800 08/08 0000 08/07 1600 08/07 0800 08/07 0000 Intake Total 650 130 850 300 450 240 Output Total 365 600 450 15 Balance 650 -235 250 300 0 225 Intake, IV 10 250 300 250 Intake, Oral 650 120 600 200 240 Number 1 0 Bowel Movements Output, 15 15 Drainage Output, Urine 350 600 450 Patient 221 lb Weight Physical Exam: Well-developed, morbidly obese elderly female in no acute distress sitting in her chair. Vital signs: See above. Lungs: Occasional rhonchi and few crackles at the bases left greater than right. Heart: S1, S2 with soft systolic murmur. Extremities: Bilateral 1-2 + lower extremity edema. Sternal wound dressing dry with drain in place. Current Medications: Current Medications Sig/Louis Start time Last Medication Dose Route Stop Time Status Admin Aspirin Buffered 81 MG DAILY 08/06 1000 AC 08/08 PO 0910 Atorvastatin Calcium 5 MG 1700 08/06 1700 AC 08/08 PO 1604 Ciprofloxacin 500 MG BID 08/06 0118 AC 08/08 PO 08/10 0117 0910 Enoxaparin Sodium 40 MG DAILY 08/06 1000 AC 08/08 SC 0911 Furosemide 40 MG BID 08/07 2200 08/08 IV 0911 Ibuprofen 600 MG .STK-MED ONE 08/08 0906 DC PO 08/08 0907 Ibuprofen 600 MG Q6P PRN 08/06 0130 AC 08/08 PO 1604 Levothyroxine Sodium 0.075 MG DAILY AC 08/06 0700 AC 08/08 PO 0601 Metronidazole 500 MG BID 08/06 0118 AC 08/08 PO 0911 Nystatin 1 DASH BID 08/06 2199 AC 08/08 TOP 0942 Nystatin 1 DASH BID PRN 08/06 013 AC TOP Oxycodone/ 1 TAB Q6P PRN 08/06 0130 AC 08/07 Acetaminophen PO 1652 Oxycodone/ 2 TAB Q6P PRN 08/06 0130 AC Acetaminophen PO Potassium Chloride 40 MEQ ONCE ONE 08/08 2014 DC PO 08/08 2015 Vancomycin HCl 750 MG Q12 08/06 1000 AC 08/08 Dextrose/Water 250 ML IV 0941 Results Last 48 Hrs of Labs/Mics: Laboratory Tests 08/08/16 0605: Anion Gap 13, Estimated GFR 54 L, BUN/Creatinine Ratio 12.0 08/07/16 1040: Anion Gap 15, Estimated GFR > 60, BUN/Creatinine Ratio 13.3, Magnesium 1.7, CBC w Diff NO MAN DIFF REQ, RBC 3.94 L, MCV 86.8, MCH 28.3, RDW 17.2 H, MPV 7.3 L , Gran % 72.7, Lymphocytes % 10.2 L, Monocytes % 13.9 H, Eosinophils % 3.0, Basophils % 0.2, Absolute Granulocytes 8.3 H, Absolute Lymphocytes 1.2, Absolute Monocytes 1.6 H, Absolute Eosinophils 0.3, Absolute Basophils 0, PUBS MCHC 32.6 L, Vancomycin Trough 15.4 Recent Imaging Studies: CXR (08/08/2016) Persistent multifocal right lung consolidation, as was demonstrated on recent thoracic imaging. Overall no significant interval change. Minimal left basilar opacification may represent atelectasis or other consolidation. Echocardiogram (08/07/2016) Moderate aortic sclerosis is present with minimal to mild aortic insufficiency. MItral leaflet thickening is present with moderate to severe anular calcification and mild mitral insufficiency with mild left atrial enlargement. THere is no pericardial fluid present. The left ventricular chamber size and systolic function are normal. Moderate concentric hypertrophy is present. There are no esting wall motion abnormalities. Fibrosis of the papillary muscles is present. Mild tricuspid and pulmonary insufficiency are present with pulmonary hypertension and an estimated RV systolic pressure of 54mmHg. Assessment/Plan Assessment/Plan Coronary artery disease s/p CABG with sternal wound infections requiring multiple surgical interventions and reasoning worsening shortness of breath with suspected possible right-sided pneumonia versus atypical congestive heart failure with preserved left ventricular systolic function, moderate pulmonary hypertension, and no major valvular abnormalities. No significant diuresis thus far, it inputs/outputs are accurate. * Continue IV furosemide 40 mg twice daily and follow-up CXR in a.m. if there is a good diuresis. * Follow-up BUN/creatinine, magnesium, potassium, etc. * Continue to follow-up on ID recommendations. Continue telemetry? Yes
[2016-08-08 22:29] VITALS: BP 100/50
--- NOTE | 2016-08-09 07:53 | PN- Housestaff ---
Subjective Follow-up For: -worsening shortness of breath Tele-Events Since Last Visit: Sinus Bradycardia 50-90 No Events Subjective: Ms Wilhelm was seen and examined this morning. Resting comfortably in bed. She reports no issues overnight. She continues to be on supplemental oxygen via nasal cannula 1.5 L. Patient expresses mild shoulder discomfort. Shoulder pain is rated a 5 out of 10 in severity. Described as a dull pain. Responds well to Motrin. Patient does also report at cough going to postnasal drip. Patient denies any fever, chills, nausea, vomiting. Review of Systems Constitutional: Reports: see HPI. Denies: chills, diaphoresis, fever, malaise. Objective Last 24 Hrs of Vital Signs/I&O Vital Signs Date Time Temp Pulse Resp B/P Pulse O2 O2 Flow FiO2 Ox Delivery Rate 08/09 817 98.0 78 18 108/58 92 Nasal 1.5L Cannula 08/09 0800 98 Nasal 2.0L Cannula 08/09 0000 Nasal 2.0L Cannula 08/08 2229 97.9 56 18 100/50 95 08/08 1600 98.4 98 20 108/66 99 Nasal 1.5L Cannula Intake & Output 08/09 1600 08/09 0800 08/09 0000 Intake Total 600 600 Output Total 900 900 Balance -300 -300 Intake, IV 250 250 Intake, Oral 350 350 Number 0 Bowel Movements Output, Urine 900 900 Patient 98.43 kg Weight Physical Exam General Appearance: Alert, Oriented X3, Cooperative Cardiovascular: Normal S1, Normal S2 Lungs: Clear to Auscultation Abdomen: Normal Bowel Sounds, Soft, No Tenderness Neurological: Normal Speech, Strength at 5/5 X4 Ext Extremities: Edema 1+ Vascular: Normal Pulses Current Medications: Current Medications Sig/Louis Start time Last Medication Dose Route Stop Time Status Admin Aspirin Buffered 81 MG DAILY 08/06 1000 AC 08/09 PO 0948 Atorvastatin Calcium 5 MG 1700 08/06 1700 AC 08/08 PO 1604 Ciprofloxacin 500 MG BID 08/06 0118 AC 08/09 PO 08/10 011 0948 Enoxaparin Sodium 40 MG DAILY 08/06 1000 AC 08/09 SC 0949 Furosemide 40 MG 7:30 AM, & 4:30 PM 08/09 0730 AC 08/09 IV 0949 Furosemide 40 MG BID 08/07 2200 DC 08/08 IV 2205 Ibuprofen 600 MG .STK-MED ONE 08/08 1559 DC PO 08/08 1600 Ibuprofen 600 MG Q6P PRN 08/06 0130 AC 08/09 PO 0616 Levothyroxine Sodium 0.075 MG DAILY AC 08/06 0700 AC 08/09 PO 0535 Magnesium Sulfate 1 GM ONCE ONE 08/09 1000 AC Dextrose/Water 100 ML IV 08/09 1359 Metronidazole 500 MG BID 08/06 0118 AC 08/09 PO 0949 Nystatin 1 DASH BID 08/06 2200 AC 08/09 TOP 0949 Nystatin 1 DASH BID PRN 08/06 0130 AC TOP Oxycodone/ 1 TAB Q6P PRN 08/06 0130 AC 08/07 Acetaminophen PO 1652 Oxycodone/ 2 TAB Q6P PRN 08/06 0130 AC Acetaminophen PO Potassium Chloride 40 MEQ ONCE ONE 08/08 2014 DC 08/08 PO 08/08 Ramelteon 8 MG ONCE ONE 08/08 2215 DC 08/08 PO 08/08 2216 2338 Vancomycin HCl 750 MG Q12 08/06 1000 AC 08/09 Dextrose/Water 250 ML IV 1027 Last 24 Hrs of Lab/[facility] Results Last 24 Hrs of Labs/Mics: Laboratory Tests 08/09/16 0525: Anion Gap 12, Estimated GFR 54 L, BUN/Creatinine Ratio 13.0, Magnesium 1.6 Assessment/Plan Assessment: This is a 76-year-old female with past medical history of coronary artery disease status post CABG ( 2010) ,hypertension, type 2 diabetes mellitus, hypercholesterolemia, hypothyroidism,obesity, CABG complicated with sternal wound chronic osteomyelitis (initial cultures growing Serratia in 2010) , and the wound complicated multiple times, the first time treated with 6 weeks of ciprofloxacin, repeat debridement, the second time treated with oxacillin, however continued to have recurrent infection with multiple debridements after that,most recently underwent a debridement of the sternal wound and sternum with bilateral pectoralis muscle advancement flaps by Dr. Salcedo on 06/12/2016, with [address], out of which 3 were removed and one still in place, with most recent ER visit on 06/27/2016 when she was transferred to [place] from ER, for sternotomy with washout, was placed on 6 weeks of ciprofloxacin, Flagyl and vancomycin through the PICC line (last dose 08/14/2016) comes in today with chief complaint of worsening shortness of breath as last 3-4 weeks prior to admission, which has progressively worsened since last 1 week accompanied with worsening of bilateral lower extremity swelling. X-ray revealed diffuse patchy opacity primarily involving the middle and the right lower lobes most suggestive of pneumonia. CTA chest negative for pulmonary emboli We will we will continue current management. Chest x-ray on 08/09/2016 showed moderate consolidation seen in the mid and right lower lung similar to prior. Small bilateral pleural effusions. Persistent cardiac enlargement. She was admitted to general medicine floor for the treatment of following problems : #1 worsening shortness of breath most likely secondary to community-acquired pneumonia versus healthcare acquired pneumonia versus atypical congestive heart failure. * Patient has proBNP elevated. * Echo still pending. * However most likely the shortness of breath is secondary to pneumonia versus fluid overload in the setting of elevated proBNP. * Continue to monitor intake and output. * Continue to monitor daily weights. * Continue to monitor electrolytes and replete as necessary. * Continue IV Lasix 40 mg bid daily. #2 sternal wound infection status post multiple debridement with chronic osteomyeltis on ciprofloxacin and Flagyl and vancomycin. * Continue current antibiotic ciprofloxacin, Flagyl, vancomycin until August 14 * Vanco as per trough levels -15.4 * wound site and picc looks clean, * continue to follow cultures #3 new EKG changes with increase atrial ectopy. * We will continue to trend troponin and EKG. * All thress sents of troponin negative. * ct telemetry monitoring. #4 hypomagnesemia/hypokalemia. * We'll continue to monitor daily and repeat as necessary. #5 hypothyroidism. * Continue Synthyroid 0.075 mg daily #6 hyperlipidemia * Ct Lipitor 5 mg daily. #7 history of coronary artery disease status post CABG. * Continue aspirin 81 mg daily. Trazodone when necessary for sleep. Patient is full code. DVT prophylaxis with Lovenox. Mild/moderate and severe pain pathway ordered. Problem List: 1. Hypertension 2. Hypothyroidism 3. Obesity 4. Dyslipidemia 5. Abscess 6. Cellulitis 7. Postoperative abscess 8. Osteomyelitis 9. Soft tissues foreign body 10. Pneumonia 11. Respiratory alkalosis 12. 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 In the setting of continued diuresis
[2016-08-09 08:18] VITALS: BP 108/58
--- NOTE | 2016-08-09 10:35 | RADIOLOGY REPORT ---
EXAMINATION: XR PORTABLE CHEST CLINICAL INFORMATION: Pleural effusion COMPARISON: Multiple prior studies most recently 08/08/2016. TECHNIQUE: Portable AP upright FINDINGS: Cardiac silhouette is moderately enlarged. There remains moderate airspace consolidation throughout the mid and lower right lung without significant change from prior. Small bilateral pleural effusions are present. A left PICC terminates at the level of the left brachiocephalic vein. Surgical clips are seen in the mediastinum. IMPRESSION: Moderate consolidation is seen in the mid and lower right lung, similar to prior. There are small bilateral pleural effusions. Persistent cardiac enlargement.
[2016-08-09 16:00] VITALS: BP 102/58
[2016-08-09 23:58] VITALS: BP 130/60
--- NOTE | 2016-08-10 05:44 | PN- Housestaff ---
Subjective Follow-up For: CHF Complaints: no complaints Subjective: i have seen and examined the patient today mike.Patient was seen and examined this morning. She is alert awake and oriented to time place and person. No acute events noticed overnight. Patient is stable. Review of Systems Constitutional: Reports: see HPI. Objective Last 24 Hrs of Vital Signs/I&O Vital Signs Date Time Temp Pulse Resp B/P Pulse O2 O2 Flow FiO2 Ox Delivery Rate 08/10 0000 Nasal 2.0L Cannula 08/09 2358 97.7 65 20 130/60 95 Nasal 1.5L Cannula 08/09 1600 98.8 77 18 102/58 97 Nasal 1.5L Cannula 08/09 0818 98.0 78 18 108/58 92 Nasal 1.5L Cannula 08/09 0800 98 Nasal 2.0L Cannula Intake & Output 08/10 0800 08/10 0000 08/09 1600 Intake Total 750 450 Output Total 928 Balance -178 450 Intake, IV 250 Intake, Oral 500 450 Output, 28 Drainage Output, Urine 900 Physical Exam General Appearance: Alert, Oriented X3, Cooperative Skin: No Rashes, No Breakdown HEENT: Atraumatic, PERRLA, EOMI Cardiovascular: Normal S1, Normal S2, No Murmurs Lungs: Clear to Auscultation, Normal Air Movement Abdomen: Normal Bowel Sounds, Soft, No Tenderness Extremities: No Clubbing, No Cyanosis, Normal Pulses Current Medications: Current Medications Sig/Louis Start time Last Medication Dose Route Stop Time Status Admin Aspirin Buffered 81 MG DAILY 08/06 1000 AC 08/09 PO 0948 Atorvastatin Calcium 5 MG 1700 08/06 1700 AC 08/09 PO 1705 Ciprofloxacin 500 MG BID 08/06 0118 DC 08/09 PO 08/10 0117 2139 Enoxaparin Sodium 40 MG DAILY 08/06 1000 AC 08/09 SC 0949 Furosemide 40 MG 7:30 AM, & 4:30 PM 08/09 0730 AC 08/09 IV 1705 Ibuprofen 600 MG .STK-MED ONE 08/09 1225 DC PO 08/09 1226 Ibuprofen 600 MG .STK-MED ONE 08/09 0611 DC PO 08/09 0612 Ibuprofen 600 MG Q6P PRN 08/06 0130 AC 08/09 PO 2321 Levothyroxine Sodium 0.075 MG DAILY AC 08/06 0700 AC 08/09 PO 0535 Magnesium Sulfate 1 GM ONCE ONE 08/09 1000 DC 08/09 Dextrose/Water 100 ML IV 08/09 1359 1145 Metronidazole 500 MG BID 08/06 0118 DC 08/09 PO 2139 Nystatin 1 DASH BID 08/06 2200 AC 08/09 TOP 2139 Nystatin 1 DASH BID PRN 08/06 0130 DC TOP Oxycodone/ 1 TAB Q6P PRN 08/06 0130 AC 08/07 Acetaminophen PO 1652 Oxycodone/ 2 TAB Q6P PRN 08/06 0130 AC Acetaminophen PO Ramelteon 8 MG ONCE ONE 08/09 2300 DC 08/09 PO 08/09 2301 2321 Vancomycin HCl 750 MG Q12 08/06 1000 AC 08/09 Dextrose/Water 250 ML IV 2138 Lines/Diet/Fluids Restraints: none Assessment/Plan Assessment: This is a 76-year-old female with past medical history of coronary artery disease status post CABG ( 2010) ,hypertension, type 2 diabetes mellitus, hypercholesterolemia, hypothyroidism,obesity, CABG complicated with sternal wound chronic osteomyelitis (initial cultures growing Serratia in 2010) , and the wound complicated multiple times, the first time treated with 6 weeks of ciprofloxacin, repeat debridement, the second time treated with oxacillin, however continued to have recurrent infection with multiple debridements after that,most recently underwent a debridement of the sternal wound and sternum with bilateral pectoralis muscle advancement flaps by Dr. Salcedo on 06/12/2016, with [address], out of which 3 were removed and one still in place, with most recent ER visit on 06/27/2016 when she was transferred to [place] from ER, for sternotomy with washout, was placed on 6 weeks of ciprofloxacin, Flagyl and vancomycin through the PICC line (last dose 08/14/2016) comes in today with chief complaint of worsening shortness of breath as last 3-4 weeks prior to admission, which has progressively worsened since last 1 week accompanied with worsening of bilateral lower extremity swelling. X-ray revealed diffuse patchy opacity primarily involving the middle and the right lower lobes most suggestive of pneumonia. CTA chest negative for pulmonary emboli We will we will continue current management. Chest x-ray on 08/09/2016 showed moderate consolidation seen in the mid and right lower lung similar to prior. Small bilateral pleural effusions. Persistent cardiac enlargement. She was admitted to general medicine floor for the treatment of following problems : #1 worsening shortness of breath most likely secondary to community-acquired pneumonia versus healthcare acquired pneumonia versus atypical congestive heart failure. * Patient has proBNP elevated. * Echo still pending. * However most likely the shortness of breath is secondary to pneumonia versus fluid overload in the setting of elevated proBNP. * Continue to monitor intake and output. * Continue to monitor daily weights. * Continue to monitor electrolytes and replete as necessary. * Continue IV Lasix 40 mg bid daily, will swithc to PO tmrw. #2 sternal wound infection status post multiple debridement with chronic osteomyeltis on ciprofloxacin and Flagyl and vancomycin. * Continue current antibiotic ciprofloxacin, Flagyl, vancomycin until August 14 * Vanco as per trough levels -15.4 * wound site and picc looks clean, * continue to follow cultures #3 new EKG changes with increase atrial ectopy. * We will continue to trend troponin and EKG. * All thress sets of troponin negative. * ct telemetry monitoring. #4 hypomagnesemia/hypokalemia. * We'll continue to monitor daily and replete as necessary. #5 hypothyroidism. * Continue Synthyroid 0.075 mg daily #6 hyperlipidemia * Ct Lipitor 5 mg daily. #7 history of coronary artery disease status post CABG. * Continue aspirin 81 mg daily. Trazodone when necessary for sleep. Patient is full code. DVT prophylaxis with Lovenox. Mild/moderate and severe pain pathway ordered. Problem List: 1. Bilateral lower extremity edema 2. Respiratory alkalosis 3. Hypertension 4. Hypothyroidism 5. Osteomyelitis Pain Ratin Pain Location: sternal area Pain Goal: Remain pain free Pain Plan: ibuprofen Tomorrow's Labs & Rationales: [facility]
[2016-08-10 08:00] VITALS: BP 148/80
--- NOTE | 2016-08-10 09:12 | PN- Pulmonary ---
Subjective HPI/Critical Care Issues: pt seen and examined. afebrile hemodynamically stable 1.5L nc 97% nc vancomycin ordered flagyl and ciprofloxacin were recommended, currently inactive Objective Current Medications: Current Medications Sig/Louis Start time Last Medication Dose Route Stop Time Status Admin Aspirin Buffered 81 MG DAILY 08/06 1000 AC 08/09 PO 0948 Atorvastatin Calcium 5 MG 1700 08/06 1700 AC 08/09 PO 1705 Ciprofloxacin 500 MG BID 08/06 0118 DC 08/09 PO 08/10 0117 2139 Enoxaparin Sodium 40 MG DAILY 08/06 1000 AC 08/09 SC 0949 Furosemide 40 MG 7:30 AM, & 4:30 PM 08/09 0730 AC 08/10 IV 0732 Ibuprofen 600 MG .STK-MED ONE 08/09 2319 DC PO 08/09 2320 Ibuprofen 600 MG .STK-MED ONE 08/09 1225 DC PO 08/09 1226 Ibuprofen 600 MG Q6P PRN 08/06 0130 AC 08/09 PO 2321 Levothyroxine Sodium 0.075 MG DAILY AC 08/06 0700 AC 08/10 PO 0548 Magnesium Sulfate 1 GM ONCE ONE 08/09 1000 DC 08/09 Dextrose/Water 100 ML IV 08/09 1359 1145 Metronidazole 500 MG BID 08/06 0118 DC 08/09 PO 2139 Nystatin 1 DASH BID 08/06 2200 AC 08/09 TOP 2139 Nystatin 1 DASH BID PRN 08/06 0130 DC TOP Oxycodone/ 1 TAB Q6P PRN 08/06 0130 AC 08/07 Acetaminophen PO 1652 Oxycodone/ 2 TAB Q6P PRN 08/06 0130 AC Acetaminophen PO Ramelteon 8 MG ONCE ONE 08/09 2300 DC 08/09 PO 08/09 2301 2321 Vancomycin HCl 750 MG Q12 08/06 1000 AC 08/09 Dextrose/Water 250 ML IV 2139 Vital Signs & I&O Last 24 Hrs of Vitals and I&O: Vital Signs Date Time Temp Pulse Resp B/P Pulse O2 O2 Flow FiO2 Ox Delivery Rate 08/10 0800 97.6 59 20 148/80 97 Nasal 1.5L Cannula 08/10 0000 Nasal 2.0L Cannula 08/09 2358 97.7 65 20 130/60 95 Nasal 1.5L Cannula 08/09 1600 98.8 77 18 102/58 97 Nasal 1.5L Cannula Intake & Output 08/10 1600 08/10 0800 08/10 0000 Intake Total 120 750 Output Total 10 928 Balance 110 -178 Intake, IV 250 Intake, Oral 120 500 Output, 10 28 Drainage Output, Urine 900 Patient 216 lb Weight Exam Other Physical Findings: General - Alert, awake and oriented HEENT - normocephalic, atraumatic Cardiovascular - S1, S2, systolic murmur Lungs - slightly diminished breath sounds bilaterally however on the right crackles are more prominent Abdomen - obese, soft, bowel sounds positive, no tenderness Extremities - significant bilateral 2+ improved Results Last 24 Hrs of Lab Results: Laboratory Tests 08/10/16 0540: Anion Gap 8, Estimated GFR 49 L, BUN/Creatinine Ratio 18.2, Magnesium 1.8 Impression/Plan Impression/Plan Impression/Plan: Impression 76-year-old woman -history of CABG in 2010, complicated by by sternal wounds and osteomyelitis requiring multiple antibiotic courses, admissions, PICC line placement recently and on vancomycin and ciprofloxacin and Flagyl for therapy. -shortness of breath is subacute in nature over the past week getting worse. Significant edema is present in the setting of an elevated proBNP 8430. Her CAT scan findings are not clearly manufacturer's representative of congestive heart failure given the unilateral issue however an atypical presentations possible. She is without a fever nor leukocytosis at this time. -pulmonary htn Plan -f/u ID recommendations -flagyl and cipro are not active, please resume, and vancomycin continue -CAT scan of the chest would be appropriate for resolution after hospitalization unless clinically warranted to repeat earlier -Continue diuresis and monitoring ins and outs -DVT prophylaxis at all times
--- NOTE | 2016-08-10 11:30 | PN- Infect Dx ---
Subjective Subjective: Afebrile. She feels overall improved though still short of breath with exertion. Objective Last 24 Hrs of Vital Signs/I&O Vital Signs Date Time Temp Pulse Resp B/P Pulse O2 O2 Flow FiO2 Ox Delivery Rate 08/10 08 97.6 59 20 148/80 97 Nasal 1.5L Cannula 08/10 0000 Nasal 2.0L Cannula 08/09 2358 97.7 65 20 130/60 95 Nasal 1.5L Cannula 08/09 1600 98.8 77 18 102/58 97 Nasal 1.5L Cannula Intake & Output 08/10 1600 08/10 0800 08/10 0000 Intake Total 120 750 Output Total 10 928 Balance 110 -178 Intake, IV 250 Intake, Oral 120 500 Output, 10 28 Drainage Output, Urine 900 Patient 217 lb 216 lb Weight Physical Exam Other Physical Findings: She appears comfortable in no acute distress Chest drain remains in place in the xiphoid region Lungs are clear Heart regular rhythm with no murmur Extremities decreased edema both lower extremities; PICC in the left upper extremity with no inflammation at the site Results Last 24 Hours of Lab Results: Laboratory Tests 08/10 0540 Chemistry Sodium (137 - 145 mmol/L) 141 Potassium (3.5 - 5.1 mmol/L) 3.6 Chloride (98 - 107 mmol/L) 100 Carbon Dioxide (22 - 30 mmol/L) 33 H Anion Gap (5 - 16) 8 BUN (7 - 17 mg/dL) 20 H Creatinine (0.5 - 1.0 mg/dL) 1.1 H Estimated GFR (>60 ml/min) 49 L BUN/Creatinine Ratio (7 - 25 %) 18.2 Magnesium (1.6 - 2.3 mg/dL) 1.8 Last 24 Hours of Ayaz Results: No recent cultures Recent Imaging Studies: Chest x-ray August 09 slight decreased densities in the right mid and lower lungs Assessment/Plan Impression: Overall improved with diuresis with decreased lower extremity edema and with some improvement in her symptoms, with a 15 pound weight loss from admission, though with little improvement in her chest x-ray. She remains afebrile on Vancomycin, Flagyl and Ciprofloxacin for a sternal wound infection/osteomyelitis secondary to coag-negative Staph now Day 38 of treatment. Suggestion: 1. Review laboratory data, including ESR, from [place] 2. Further management of CHF per Cardiology 3. Continue Vancomycin, Flagyl and Ciprofloxacin to complete her 6 week course (until August 14)
--- NOTE | 2016-08-10 15:20 | PN- Cardiology ---
Subjective Subjective: Shortness of breath improving. No chest pain. No palpitations. No nausea or vomiting. No lightheadedness or dizziness. No syncope. Objective Vital Signs and I&Os Vital Signs Date Time Temp Pulse Resp B/P Pulse O2 O2 Flow FiO2 Ox Delivery Rate 08/10 0800 97.6 59 20 148/80 97 Nasal 1.5L Cannula 08/10 0000 Nasal 2.0L Cannula 08/09 2358 97.7 65 20 130/60 95 Nasal 1.5L Cannula 08/09 1600 98.8 77 18 102/58 97 Nasal 1.5L Cannula Intake & Output 08/10 1600 08/10 0800 08/10 0000 08/09 1600 08/09 0800 08/09 0000 Intake Total 120 750 450 600 600 Output Total 10 928 900 900 Balance 110 -178 450 -300 -300 Intake, IV 250 250 250 Intake, Oral 120 500 450 350 350 Number 0 Bowel Movements Output, 10 28 Drainage Output, Urine 900 900 900 Patient 217 lb 216 lb 217 lb Weight Physical Exam: Gen: NAD HEENT: normal Lungs: Scattered rhonchi, normal resp. effort Heart: RRR, S1, S2, 1/6 systolic murmur Abdomen: Soft, nontender, no masses Extremities: No clubbing, cyanosis, or edema. Neuro: Alert and oriented x 3, cranial nerves intact Current Medications: Current Medications Sig/Louis Start time Last Medication Dose Route Stop Time Status Admin Aspirin Buffered 81 MG DAILY 08/06 1000 AC 08/10 PO 1029 Atorvastatin Calcium 5 MG 1700 08/06 1700 AC 08/09 PO 1705 Ciprofloxacin 500 MG BID 08/10 1000 AC 08/10 PO 08/14 0959 1028 Ciprofloxacin 500 MG BID 08/06 0118 DC 08/09 PO 08/10 0117 2139 Enoxaparin Sodium 40 MG DAILY 08/06 1000 AC 08/10 SC 1029 Furosemide 40 MG 7:30 AM, & 4:30 PM 08/09 0730 AC 08/10 IV 0732 Ibuprofen 600 MG .STK-MED ONE 08/09 2319 DC PO 08/09 2320 Ibuprofen 600 MG Q6P PRN 08/06 0130 AC 08/09 PO 2321 Levothyroxine Sodium 0.075 MG DAILY AC 08/06 0700 AC 08/10 PO 0548 Metronidazole 500 MG BID 08/10 1000 AC 08/10 PO 1028 Metronidazole 500 MG BID 08/06 0118 DC 08/09 PO 2139 Nystatin 1 DASH BID 08/06 2200 AC 08/10 TOP 1029 Nystatin 1 DASH BID PRN 08/06 0130 DC TOP Oxycodone/ 1 TAB Q6P PRN 08/06 0130 AC 08/07 Acetaminophen PO 1652 Oxycodone/ 2 TAB Q6P PRN 08/06 0130 AC Acetaminophen PO Potassium Chloride 40 MEQ ONCE ONE 08/10 1200 DC 08/10 PO 08/10 1201 1208 Ramelteon 8 MG ONCE ONE 08/09 2300 DC 08/09 PO 08/09 2301 2321 Vancomycin HCl 750 MG Q12 08/10 1000 AC 08/10 Dextrose/Water 250 ML IV 1208 Vancomycin HCl 750 MG Q12 08/06 1000 DC 08/09 Dextrose/Water 250 ML IV 2139 Results Last 48 Hrs of Labs/Mics: Laboratory Tests 08/10/16 0540: Anion Gap 8, Estimated GFR 49 L, BUN/Creatinine Ratio 18.2, Magnesium 1.8 08/09/16 0525: Anion Gap 12, Estimated GFR 54 L, BUN/Creatinine Ratio 13.0, Magnesium 1.6 Recent Imaging Studies: Chest x-ray: Moderate consolidation is seen in the mid and lower right lung, similar to prior. There are small bilateral pleural effusions. Persistent cardiac enlargement. Echocardiogram 08/07/16: 1. Moderate aortic sclerosis is present with minimal to mild aortic insufficiency. 2. MItral leaflet thickening is present with moderate to severe anular calcification and mild mitral insufficiency with mild left atrial enlargement. 3. THere is no pericardial fluid present. 4. The left ventricular chamber size and systolic function are normal. Moderate concentric hypertrophy is present. There are no resting wall motion abnormalities. 5. Fibrosis of the papillary muscles is present. 6. Mild tricuspid and pulmonary insufficiency are present with pulmonary hypertension and an estimated RV systolic pressure of 54 mmHg. Assessment/Plan Assessment/Plan Assessment: 1. CAD, status post CABG 2. Pneumonia 3. Acute HFpEF Plan: * Continue IV Lasix today * Change Lasix to 40 mg po twice a day tomorrow if stable. * Monitor input and output * Check basic metabolic profile tomorrow Continue telemetry? Yes
[2016-08-10 15:55] VITALS: BP 120/62
[2016-08-10 23:17] VITALS: BP 106/62
--- NOTE | 2016-08-11 07:37 | PN- Housestaff ---
Subjective Follow-up For: -worsening shortness of breath Complaints: no complaints Tele-Events Since Last Visit: Sinus rhythm 63-70 Subjective: Seen and examined the patient today morning, she seems to be doing well, the peripheral edema has gone down significantly, she has been diuresing very well. Plan to transition to by mouth Lasix today. She was afebrile, vitals were stable, no overnight events on telemetry. Review of Systems Constitutional: Reports: see HPI. Denies: diaphoresis, fever, malaise, weakness. Cardiovascular: Denies: chest pain, edema, orthopena, palpitations. Respiratory: Denies: cough, hemoptysis, orthopnea, short of breath. Gastrointestinal: Denies: abdominal pain, bloating, constipation, diarrhea. Objective Last 24 Hrs of Vital Signs/I&O Vital Signs Date Time Temp Pulse Resp B/P Pulse O2 O2 Flow FiO2 Ox Delivery Rate 08/11 0000 Room Air 08/10 2317 98.4 63 20 106/62 92 Room Air 08/10 1555 97.5 66 20 120/62 96 08/10 0800 97.6 59 20 148/80 97 Nasal 1.5L Cannula Intake & Output 08/11 0800 08/11 0000 08/10 1600 Intake Total 1000 1050 Output Total 915 825 Balance 85 225 Intake, IV 250 250 Intake, Oral 750 800 Number 0 1 Bowel Movements Output, 15 Drainage Output, Urine 900 825 Patient 98.43 kg Weight Physical Exam General Appearance: Alert, Oriented X3, Cooperative Other Physical Findings: she is alert oriented, on room air, off the oxygen today, bilateral lungs clear, chest S1-S2 present, no murmur.Per abdomen soft and tender. Bilateral lower extremity edema has gone down significantly, still mild edema 1+ present, declined present in the left extremity, site clear. Sternal wound drain present. Surrounding site no erythema or redness. Current Medications: Current Medications Sig/Louis Start time Last Medication Dose Route Stop Time Status Admin Aspirin Buffered 81 MG DAILY 08/06 1000 AC 08/10 PO 1029 Atorvastatin Calcium 5 MG 1700 08/06 1700 AC 08/10 PO 1620 Ciprofloxacin 500 MG BID 08/10 1000 AC 08/10 PO 08/14 0959 2149 Enoxaparin Sodium 40 MG DAILY 08/06 1000 AC 08/10 SC 1029 Furosemide 40 MG 7:30 AM, & 4:30 PM 08/09 0730 AC 08/10 IV 1619 Ibuprofen 600 MG .STK-MED ONE 08/10 2128 DC PO 08/10 2129 Ibuprofen 600 MG .STK-MED ONE 08/10 1615 DC PO 08/10 1616 Ibuprofen 600 MG Q6P PRN 08/06 0130 AC 08/11 PO 0654 Levothyroxine Sodium 0.075 MG DAILY AC 08/06 0700 AC 08/11 PO 0644 Metronidazole 500 MG BID 08/10 1000 AC 08/10 PO 2149 Nystatin 1 DASH BID 08/06 2200 AC 08/10 TOP 2149 Oxycodone/ 1 TAB Q6P PRN 08/06 0130 AC 08/07 Acetaminophen PO 1652 Oxycodone/ 2 TAB Q6P PRN 08/06 0130 AC Acetaminophen PO Potassium Chloride 40 MEQ ONCE ONE 08/10 1200 DC 08/10 PO 08/10 1201 1208 Ramelteon 8 MG ONCE ONE 08/10 2215 DC 08/10 PO 08/10 2216 2348 Vancomycin HCl 750 MG Q12 08/10 1000 AC 08/10 Dextrose/Water 250 ML IV 2149 Vancomycin HCl 750 MG Q12 08/06 1000 DC 08/09 Dextrose/Water 250 ML IV 2139 Last 24 Hrs of Lab/Ayaz Results Last 24 Hrs of Labs/Mics: Laboratory Tests 08/11/16 0650: Anion Gap 10, Estimated GFR 49 L, BUN/Creatinine Ratio 21.8, Magnesium 1.7 Lines/Diet/Fluids Restraints: none Assessment/Plan Assessment: This is a 76-year-old female with past medical history of coronary artery disease status post CABG ( 2010) ,hypertension, type 2 diabetes mellitus, hypercholesterolemia, hypothyroidism,obesity, CABG complicated with sternal wound chronic osteomyelitis (initial cultures growing Serratia in 2010) , and the wound complicated multiple times, the first time treated with 6 weeks of ciprofloxacin, repeat debridement, the second time treated with oxacillin, however continued to have recurrent infection with multiple debridements after that,most recently underwent a debridement of the sternal wound and sternum with bilateral pectoralis muscle advancement flaps by Dr. Salcedo on 06/12/2016, with [address], out of which 3 were removed and one still in place, with most recent ER visit on 06/27/2016 when she was transferred to [facility] from ER, for sternotomy with washout, was placed on 6 weeks of ciprofloxacin, Flagyl and vancomycin through the PICC line (last dose 08/14/2016) came in with chief complaint of worsening shortness of breath as last 3-4 weeks prior to admission, which has progressively worsened since last 1 week accompanied with worsening of bilateral lower extremity swelling. X-ray revealed diffuse patchy opacity primarily involving the middle and the right lower lobes most suggestive of pneumonia. CTA chest negative for pulmonary emboli She was admitted to general medicine floor for the treatment of following problems : #1 worsening shortness of breath most likely secondary to community-acquired pneumonia versus healthcare acquired pneumonia versus atypical congestive heart failure. * Patient has proBNP elevated on admission. * Echo : showed normal size left ventricle. No obvious regional wall motion abnormalities. Left ventricular wall thickness moderately increased.Normal left ventricular ejection fraction estimated at 55-60%. * However the SOB was thought ot be multifactorial but mainyl 2/2 to CHF. * Continue to monitor intake and output. * Continue to monitor daily weights. * Continue to monitor electrolytes and replete as necessary. * Await cardiology input for transition to PO Lasix today. #2 sternal wound infection status post multiple debridement with chronic osteomyeltis on ciprofloxacin and Flagyl and vancomycin. * Continue current antibiotic ciprofloxacin, Flagyl, vancomycin until August 14 * Will review lab jose angel from [place] including ESR. * wound site and picc looks clean, * NO growth on cultures. #3 new EKG changes with increase atrial ectopy. * All three sets of troponin negative. * ct telemetry monitoring. #4 hypomagnesemia/hypokalemia. * We'll continue to monitor daily and replete as necessary. #5 hypothyroidism. * Continue Synthyroid 0.075 mg daily #6 hyperlipidemia * Ct Lipitor 5 mg daily. #7 history of coronary artery disease status post CABG. * Continue aspirin 81 mg daily. Trazodone when necessary for sleep. Patient is full code. DVT prophylaxis with Lovenox. Mild/moderate and severe pain pathway ordered. Problem List: 1. snf (current) use of antibiotics 2. Bilateral lower extremity edema 3. Respiratory alkalosis 4. Pneumonia 5. Wound infection after surgery 6. Hypothyroidism 7. Obesity Pain Ratin Pain Location: sternal area Pain Goal: Remain pain free Pain Plan: ibuprofen Tomorrow's Labs & Rationales: will monitor electrolytes while on lasix DVT/Prophylaxis: pharmacological
[2016-08-11 08:00] VITALS: BP 118/60
--- NOTE | 2016-08-11 09:57 | PN- Cardiology ---
Subjective Subjective: Feeling better. Shortness of breath is improving. No palpitations. No nausea or vomiting. No chest pain. No lightheadedness or dizziness. Objective Vital Signs and I&Os Vital Signs Date Time Temp Pulse Resp B/P Pulse O2 O2 Flow FiO2 Ox Delivery Rate 08/11 0800 98.4 70 18 118/60 94 Room Air 08/11 0000 Room Air 08/10 2317 98.4 63 20 106/62 92 Room Air 08/10 1555 97.5 66 20 120/62 96 Intake & Output 08/11 1600 08/11 0800 08/11 0000 08/10 1600 08/10 0800 08/10 0000 Intake Total 250 1000 1050 120 750 Output Total 600 915 825 10 928 Balance -350 85 225 110 -178 Intake, IV 0 250 250 250 Intake, Oral 250 750 800 120 500 Number 0 0 1 Bowel Movements Output, 15 10 28 Drainage Output, Urine 600 900 825 900 Patient 217 lb 216 lb Weight Physical Exam: Gen: NAD HEENT: normal Lungs: Scattered rhonchi, normal resp. effort Heart: RRR, S1, S2, 1/6 systolic murmur Abdomen: Soft, nontender, no masses Extremities: 1+ edema Neuro: Alert and oriented x 3, cranial nerves intact Current Medications: Current Medications Sig/Louis Start time Last Medication Dose Route Stop Time Status Admin Aspirin Buffered 81 MG DAILY 08/06 1000 AC 08/11 PO 0902 Atorvastatin Calcium 5 MG 1700 08/06 1700 AC 08/10 PO 1620 Ciprofloxacin 500 MG BID 08/10 1000 AC 08/11 PO 08/14 0959 0901 Enoxaparin Sodium 40 MG DAILY 08/06 1000 AC 08/11 SC 0902 Furosemide 40 MG 7:30 AM, & 4:30 PM 08/09 0730 AC 08/11 IV 0901 Ibuprofen 600 MG .STK-MED ONE 08/108 DC PO 08/10 212 Ibuprofen 600 MG .STK-MED ONE 08/10 1615 DC PO 08/10 1616 Ibuprofen 600 MG Q6P PRN 08/06 0130 AC 08/11 PO 0654 Levothyroxine Sodium 0.075 MG DAILY AC 08/06 0700 AC 08/11 PO 0644 Metronidazole 500 MG BID 08/10 1000 AC 08/11 PO 0902 Nystatin 1 DASH BID 08/06 2200 AC 08/11 TOP 0902 Oxycodone/ 1 TAB Q6P PRN 08/06 0130 AC 08/07 Acetaminophen PO 1652 Oxycodone/ 2 TAB Q6P PRN 08/06 0130 AC Acetaminophen PO Potassium Chloride 40 MEQ ONCE ONE 08/10 1200 DC 08/10 PO 08/10 1201 1208 Ramelteon 8 MG ONCE ONE 08/10 2215 DC 08/10 PO 08/10 2216 2348 Vancomycin HCl 750 MG Q12 08/10 1000 AC 08/11 Dextrose/Water 250 ML IV 0902 Vancomycin HCl 750 MG Q12 08/06 1000 DC 08/09 Dextrose/Water 250 ML IV 2139 Results Last 48 Hrs of Labs/Mics: Laboratory Tests 08/11/16 0650: Anion Gap 10, Estimated GFR 49 L, BUN/Creatinine Ratio 21.8, Magnesium 1.7 08/10/16 0540: Anion Gap 8, Estimated GFR 49 L, BUN/Creatinine Ratio 18.2, Magnesium 1.8 Recent Imaging Studies: Chest x-ray 08/09/16: Moderate consolidation is seen in the mid and lower right lung, similar to prior. There are small bilateral pleural effusions. Persistent cardiac enlargement. Assessment/Plan Assessment/Plan Assessment: 1. CAD, status post CABG 2. Pneumonia 3. Acute HFpEF, improved Plan: * Change Lasix to 40 mg po twice a day * Monitor input and output * Check basic metabolic profile tomorrow Continue telemetry? No
--- NOTE | 2016-08-11 11:20 | PN- Pulmonary ---
Subjective HPI/Critical Care Issues: Patient seen and examined. No chest pain, at respiratory baseline. No nausea, vomiting, diarrhea or constipation. Afebrile and hemodynamically stable. Ambulating. Objective Current Medications: Current Medications Sig/Louis Start time Last Medication Dose Route Stop Time Status Admin Aspirin Buffered 81 MG DAILY 08/06 1000 AC 08/11 PO 0902 Atorvastatin Calcium 5 MG 1700 08/06 1700 AC 08/10 PO 1620 Ciprofloxacin 500 MG BID 08/10 1000 AC 08/11 PO 08/14 0959 0901 Enoxaparin Sodium 40 MG DAILY 08/06 1000 AC 08/11 SC 0902 Furosemide 40 MG 7:30 AM, & 4:30 PM 08/09 0730 AC 08/11 IV 0901 Ibuprofen 600 MG .STK-MED ONE 08/10 2128 DC PO 08/10 2129 Ibuprofen 600 MG .STK-MED ONE 08/10 1615 DC PO 08/10 1616 Ibuprofen 600 MG Q6P PRN 08/06 0130 AC 08/11 PO 0654 Levothyroxine Sodium 0.075 MG DAILY AC 08/06 0700 AC 08/11 PO 0644 Metronidazole 500 MG BID 08/10 1000 AC 08/11 PO 0902 Nystatin 1 DASH BID 08/06 2200 AC 08/11 TOP 0902 Oxycodone/ 1 TAB Q6P PRN 08/06 0130 AC 08/07 Acetaminophen PO 1652 Oxycodone/ 2 TAB Q6P PRN 08/06 0130 AC Acetaminophen PO Potassium Chloride 40 MEQ ONCE ONE 08/10 1200 DC 08/10 PO 08/10 1201 1208 Ramelteon 8 MG ONCE ONE 08/10 2215 DC 08/10 PO 08/10 2216 2348 Vancomycin HCl 750 MG Q12 08/10 1000 AC 08/11 Dextrose/Water 250 ML IV 0902 Vital Signs & I&O Last 24 Hrs of Vitals and I&O: Vital Signs Date Time Temp Pulse Resp B/P Pulse O2 O2 Flow FiO2 Ox Delivery Rate 08/11 799 98.4 70 18 118/60 94 Room Air 08/11 0000 Room Air 08/10 2317 98.4 63 20 106/62 92 Room Air 08/10 1555 97.5 66 20 120/62 96 Intake & Output 08/11 1600 08/11 0800 08/11 0000 Intake Total 250 1000 Output Total 600 915 Balance -350 85 Intake, IV 0 250 Intake, Oral 250 750 Number 0 0 Bowel Movements Output, 15 Drainage Output, Urine 600 900 Exam Other Physical Findings: General - Alert, awake and oriented HEENT - normocephalic, atraumatic Cardiovascular - S1, S2, systolic murmur Lungs - slightly diminished breath sounds bilaterally however on the right crackles are more prominent Abdomen - obese, soft, bowel sounds positive, no tenderness Extremities - significant bilateral 1+ improved Results Last 24 Hrs of Lab Results: Laboratory Tests 08/11/16 0650: Anion Gap 10, Estimated GFR 49 L, BUN/Creatinine Ratio 21.8, Magnesium 1.7 Impression/Plan Impression/Plan Impression/Plan: Impression 76-year-old woman -history of CABG in 2010, complicated by by sternal wounds and osteomyelitis requiring multiple antibiotic courses, admissions, PICC line placement recently and on vancomycin and ciprofloxacin and Flagyl for therapy. -shortness of breath is subacute in nature over the past week getting worse. Significant edema is present in the setting of an elevated proBNP 8430. Her CAT scan findings are not clearly technical support representative of congestive heart failure given the unilateral issue however an atypical presentations possible. She is without a fever nor leukocytosis at this time. -pulmonary htn Plan -f/u ID recommendations -flagyl and cipro are not active, please resume, and vancomycin continue -CAT scan of the chest would be appropriate for resolution after hospitalization unless clinically warranted to repeat earlier -Continue diuresis and monitoring ins and outs -DVT prophylaxis at all times Ensure follow-up with myself or PMD for CAT scan follow-up of the chest to ensure resolution
[2016-08-11] MEDS ORDERED: LASIX40 M1 PO (13:30)
[2016-08-11] MEDS ORDERED: ROZEREM8 M1 PO (13:32)
--- NOTE | 2016-08-11 14:04 | Discharge Summary ---
Visit Information Visit Dates Admission Date: 08/05/16 Discharge Date: 08/11/16 Hospital Course Course Attending Physician: Jairo SKINNER MD Primary Care Physician: TOMMY ALARCON,CARLA Griggs Hospital Course: This is a 76-year-old female with past medical history of coronary artery disease status post CABG ( 2010) ,hypertension, type 2 diabetes mellitus, hypercholesterolemia, hypothyroidism,obesity, CABG complicated with sternal wound chronic osteomyelitis (initial cultures growing Serratia in 2010) , and the wound complicated multiple times, the first time treated with 6 weeks of ciprofloxacin, repeat debridement, the second time treated with oxacillin, however continued to have recurrent infection with multiple debridements after that,most recently underwent a debridement of the sternal wound and sternum with bilateral pectoralis muscle advancement flaps by Dr. Salcedo on 06/12/2016, with [address], out of which 3 were removed and one still in place, with most recent ER visit on 06/27/2016 when she was transferred to [place] from ER, for sternotomy with washout, was placed on 6 weeks of ciprofloxacin, Flagyl and vancomycin through the PICC line (last dose 08/14/2016) was admitted on 08/06/16 to [facility] on with chief complaint of worsening shortness of breath as last 3-4 weeks prior to admission, which had progressively 1 week prior to admission accompanied with worsening of bilateral lower extremity swelling. She denied any fever, chills, chest pain, palpitations, dizziness, nausea, abdominal pain, dysuria, urinary urgency. On presentation at the emergency department her vitals were stable, afebrile, saturations 92% on room air, she had a white count of 12.9, no bands, H/H of 11.2/34.3, platelet of 606, potassium of 3.3, BUN and creatinine within normal limit, magnesium of 1.4, proBNP elevated at 8430, ABG 7.50/29/73/92 X-ray revealed diffuse patchy opacity primarily involving the middle and the right lower lobes most suggestive of pneumonia. 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 * Patient has proBNP elevated.Serial EKG and troponins didnot show significant changes and ACS was ruled out.X-ray shows evidence of right middle and lower lobe consolidation. * Pulmonology was on board. * Echo on Jul showed Normal size left ventricle. No obvious regional wall motion abnormalities. Left ventricular wall thickness moderately increased. Normal left ventricular ejection fraction estimated at 55-60%. * The shortness of breath was thought to be 2/2 to fluid overload in the setting of elevated proBNP 2/2 to atypical CHF.Close monitoring of intake and output alongwith daily weights,electrolytes. * Patient was gently diuresed intially with IV Lasix 20 mg daily, which was increased to 40 mg BID, which was changed to PO 40 mg BID during hosptial course ,she was discharged on this increased dose with follow up with cardio and PCP. * Though her imaging studies was suspicious of pneumonia, her history was more suggestive of congestive heart failure, supported by the lower extremity edema and the elevated BNP, and her temperatures and white blood cell count appear to have normalized without any change in her antibiotics, therefore she was continued on her antibiotic regimen for chronic osteomyelitis as below and no new antibitocis was added or changed. * There was also a concern that her CAT scan findings would not have been clearly admitting representative of congestive heart failure given the unilateral issue however it was thought to be an atypical presentation of CHF. * However, A follow up CAT scan of the chest to assure resolution after hospitalization was recommended for which she was provided script and asked to follow up with cardiology and PCP. #2 Sternal wound infection status post multiple debridement with chronic osteomyeltis on ciprofloxacin and Flagyl and vancomycin. * Patient was continued on home antibiotic regimen of ciprofloxacin, Flagyl, vancomycin until August 14 for chronic osteomyelitis. * ID was on board. * [facility] record cultures showed coagulase negative staph , for which vanco was sufficient, we were not very sure why cipro and flagyl were added at [place] , however as she was put on this regimen for a long time, and has only 6 days/6 weeks were remaining, we continued the same regimen at [place] * She was discharged on the same home Regimen. * Of note, On Discharge her CMR was missing vancomycin, which was added latter by calling in the prescription by Dr ching ( for remaining days ) to complete entire course untill jul. #3 New EKG changes with increase atrial ectopy. * Troponin and EKG were trended * First two set less than 0.01 and less than 0.02, and third was also negative. * patient was monitored closely on telemetry with #4 hypomagnesemia/hypokalemia. * These were monitor daily and repleted as necessary. #5 hypothyroidism. * Home med of Synthyroid 0.075 mg daily continued. #6 hyperlipidemia * Home med of Lipitor 5 mg was continued. #7 history of coronary artery disease status post CABG. * Home med of aspirin 81 mg daily was continued. Allergies: Coded Allergies: lansoprazole (From Prevacid) (UNKNOWN 11/06/15) ranitidine (From Zantac) (UNKNOWN 11/06/15) sucralose (From Splenda (sucralose)) (UNKNOWN 11/06/15) Significant Procedures: SERVICE DATE: 08/07/16-899 EXAM TYPE: CARD - ECHOCARDIOGRAM AMELIA PERAZA Age: 76 : 1940 Gender: F Exam Date: 08/07/2016 08:47 Exam Location: [facility] Ht (in): 62 Wt (lb): 233 BSA: 2.21 BP: 100 / 66 Ordering Physician: BRYON KIMBALL MD Referring Physician: BRYON KIMBALL MD Technologist: Silvestre Joshi [facility] Room Number: 177-01 Indications: SHORTNESS OF BREATH Rhythm: Sinus Technical Quality: Fair FINDINGS Left Ventricle Normal size left ventricle. No obvious regional wall motion abnormalities. Left ventricular wall thickness moderately increased. Normal left ventricular ejection fraction estimated at 55-60%. Right Ventricle Normal right ventricular size and function. Right Atrium Normal right atrial size. Left Atrium Left atrial dilatation. Mitral Valve Mitral valve thickened. Severe mitral annular calcification. Mild mitral regurgitation. Aortic Valve Trileaflet aortic valve. Diffuse thickening (sclerosis) of the aortic valve cusps without reduced excursion. No aortic stenosis. Trace to mild aortic regurgitation. Tricuspid Valve Tricuspid valve not well visualized, grossly normal. Mild tricuspid regurgitation. Right ventricular systolic pressure estimated to be elevated at 54 mmHg. Pulmonic Valve Pulmonic valve not well visualized, grossly normal. Mild pulmonic regurgitation. Pericardium Normal pericardium. No pericardial effusion. Great Vessels Aortic root and proximal ascending aorta not well visualized, grossly normal. CONCLUSIONS 1. Moderate aortic sclerosis is present with minimal to mild aortic insufficiency. 2. MItral leaflet thickening is present with moderate to severe anular calcification and mild mitral insufficiency with mild left atrial enlargement. 3. THere is no pericardial fluid present. 4. The left ventricular chamber size and systolic function are normal. Moderate concentric hypertrophy is present. There are no resting wall motion abnormalities. 5. Fibrosis of the papillary muscles is present. 6. Mild tricuspid and pulmonary insufficiency are present with pulmonary hypertension and an estimated RV systolic pressure of 54 mmHg. Jackeline Skinner M.D. (Electronically Signed) Final Date: 07 August 2016 16:30 MEASUREMENTS (Male / Female) Normal Values 2D ECHO LV Diastolic Diameter PLAX 4.5 cm 4.2 - 5.9 / 3.9 - 5.3 cm LV Systolic Diameter PLAX 3.1 cm 2.1 - 4.0 cm LV Fractional Shortening PLAX 31.1 % 25 - 46 % LV Ejection Fraction 2D Teich 59.0 % IVS Diastolic Thickness 1.5 cm LVPW Diastolic Thickness 1.6 cm LV Relative Wall Thickness 0.7 LVOT Diameter 1.9 cm Aortic Root Diameter 2.9 cm LA Systolic Diameter LX 4.3 cm 3.0 - 4.0 / 2.7 - 3.8 cm LV Ejection Fraction MOD BP 59.6 % >= 55 % LV Diastolic Length 4C 8.1 cm 6.9 - 10.3 cm LV Diastolic Area 4C 29.2 cm LV Diastolic Volume MOD 4C 86.0 cm LV Ejection Fraction MOD 4C 61.6 % LV Stroke Volume MOD 4C 53.0 cm LV Systolic Length 4C 6.6 cm LV Systolic Area 4C 15.6 cm LV Systolic Volume MOD 4C 33.0 cm LV Ejection Fraction MOD 2C 53.7 % LV Diastolic Volume 4C AL 89.4 cm 85 - 139 / 69 - 109 cm LV Systolic Volume 4C AL 31.3 cm LV Ejection Fraction 4C AL 64.9 % LV Stroke Volume 4C AL 58.0 cm LV Ejection Fraction 2C AL 54.9 % LA Volume 76.0 cm 18 - 58 / 22 - 52 cm Ascending Aorta Diameter 2.9 cm DOPPLER AV Peak Velocity 155.0 cm/s AV Peak Gradient 9.6 mmHg AV Mean Velocity 108.0 cm/s AV Mean Gradient 6.0 mmHg AV Velocity Time Integral 36.5 cm LVOT Peak Velocity 112.0 cm/s LVOT Peak Gradient 5.0 mmHg LVOT Mean Velocity 74.6 cm/s LVOT Mean Gradient 3.0 mmHg LVOT Velocity Time Integral 26.8 cm LVOT Stroke Volume 76.0 cm AV Area Cont Eq vti 2.1 cm AV Area Cont Eq pk 2.0 cm MV Peak Velocity 136.0 cm/s MV Peak Gradient 7.4 mmHg MV Mean Velocity 66.8 cm/s MV Mean Gradient 2.0 mmHg Mitral E Point Velocity 122.0 cm/s Mitral A Point Velocity 90.8 cm/s Mitral E to A Ratio 1.3 MV PHT Velocity 144.0 cm/s MV Deceleration [place] 469.0 cm/s MV Pressure Half Time 92.1 ms MV Area PHT 2.4 cm MV Deceleration Time 123.0 ms TR Peak Velocity 333.0 cm/s TR Peak Gradient 44.4 mmHg Right Atrial Pressure 10.0 mmHg Pulmonary Artery Systolic Pressu 54.4 mmHg Right Ventricular Systolic Press 54.4 mmHg DICTATED BY: Jairo SKINNER MD DATE/TIME DICTATED:08/07/161629 [employer]ARY [employer]ER SET UP OPERATOR:NISHI DATE/TIME TRANSCRIBED:08/07/161629 Pertinent Lab Results: SERVICE DATE: 08/05/16 EXAM TYPE: RAD - XRY-PORTABLE CHEST XRAY EXAMINATION: XR PORTABLE CHEST IMPRESSION: Diffuse patchy opacity primarily involving the middle and right lower lobes most suggestive of pneumonia. SERVICE DATE: 08/09/16 EXAM TYPE: RAD - XRY-PORTABLE CHEST XRAY IMPRESSION: Moderate consolidation is seen in the mid and lower right lung, similar to prior. There are small bilateral pleural effusions. Persistent cardiac enlargement. Disposition Summary Disposition Principal Diagnosis: 1.Atypical CHF with preserved EF 2. Chronic osteomyelitis of Sternal wound Additional Diagnosis: #3 EKG changes with increase atrial ectopy. #4 hypomagnesemia/hypokalemia. #5 hypothyroidism. #6 Hyperlipidemia #7 history of coronary artery disease status post CABG. Discharge Disposition: home or self care Discharge Instructions General Discharge Information Code Status: Full Code Patient's Diet: Heart Healthy Patient's Activity: As tolerated Follow-Up Instructions/Appts: Follow up CAT scan of the chest in 6 to 8 weeks after discharge to endure resolution of pnuemonia. We have provided you with scripts. Please follow up with your PCP within one week of discharge. Please follow up with your it recruiter within one week of discharge. Medications at Discharge Discharge Medications: Stop taking the following medications: Lisinopril (Prinivil) 5 MG TABLET ORAL DAILY Furosemide (Lasix) 40 MG TABLET ORAL DAILY Continue taking these medications: Simvastatin (Zocor*) 10 MG TABLET 1 Tablet ORAL Every night Comments: NOT TAKEN IN HOSPITAL, INSTEAD ATOVASTATIN WAS GIVEN. Last Taken: 08/10/16 Time: 5:00 PM Aspirin (Ecotrin*) 81 MG TABLET. 1 Tablet ORAL DAILY Comments: Last Taken: 08/11/16 Time: 9:00 AM Levothyroxine Sodium (Levoxyl) 75 MCG TABLET 1 Tablet ORAL DAILY Comments: Last Taken: 08/11/16 Time: 7:00 AM Metronidazole (Metronidazole) 500 MG TABLET 1 Tablet ORAL TWICE DAILY Comments: Last Taken: 08/11/16 Time: 9:00 AM Ciprofloxacin HCl (Cipro) 500 MG TABLET 1 Tablet ORAL TWICE DAILY Comments: Last Taken: 08/11/16 Time: 9:00 AM Start taking the following new medications: Furosemide (Lasix) 40 MG TABLET 1 Tablet ORAL TWICE DAILY Qty = 30 No Refills Instructions: PLEASE CONTINUE TAKING THIS DOSE FOR 5 OT 7 DAYS AND FOLLOW UP WITH DR CONDON WITHIN ONE MONTH. Comments: Last Taken: 08/11/16 Time: 9:00 AM Ramelteon (Rozerem) 8 MG TABLET 1 Tablet ORAL BEDTIME Qty = 7 No Refills Comments: Last Taken: 08/09/16 Time: 11:30 PM Copies To: TOMMY ALARCON,CARLA Griggs; GIOVANNI CHING MD; LUZ RILEY,VINCENT Attending MD Review Statement Documenting Attending: Jairo SKINNER MD
== END 2016-08-11 17:00 | disposition home health service (06) | DRG 291 ==
LOC: ENRESERVTM → ENRESERVDT → CANRESERV → ERH 17:48 → ENPENDDIS 21:33 → ERHI 21:33 → 1NO 21:33 → ERHI 08-06 07:51 → 1NO 08-06 13:34 → 2NB 08-11 13:29 → 1NO 08-11 13:33
PROVIDERS: Internal Medicine; Physician Assistant; ADMIT Specialist
DX: I11.0 Hypertensive heart disease with heart failure (principal); J18.9 Pneumonia, unspecified organism; Z68.41 Body mass index [BMI] 40.0-44.9, adult; E83.42 Hypomagnesemia; M86.68 Other chronic osteomyelitis, other site; I25.10 Atherosclerotic heart disease of native coronary artery without angina pectoris; I50.33 Acute on chronic diastolic (congestive) heart failure; D47.3 Essential (hemorrhagic) thrombocythemia; E87.6 Hypokalemia; T81.4XXS Infection following a procedure, sequela; E66.9 Obesity, unspecified; E78.5 Hyperlipidemia, unspecified; E03.9 Hypothyroidism, unspecified; Z95.1 Presence of aortocoronary bypass graft; T81.4XXD Infection following a procedure, subsequent encounter
CPT/HCPCS: 1NP; ERO; 36415; 81001; 82436; 87040; 87070; 87086; 87449; 87450; 87804; 87804-59; 93005; 93010; 93306; J1650; J1940; J2997; J3370; J7060